=== PATIENT | male | born 1945 | race Caucasian/White ===

== ENCOUNTER → 2016-09-24 | Outpatient (CLI) | payer OTHER ==
[~2016-09-24] MED LIST: /WARF25TA PO; ALEV220C2 PO; FISH100049 PO; OMEP20TA7 OR; PERC10TA PO; PERC7.5T12 PO; TYLE325T5 PO; [UNRECOGNIZED DRUG - OTHER] OR; aleve OR; flaxseed OR; krill oil OR; vitamin D OR
--- NOTE | 2016-09-24 11:45 | REP ---
PA and lateral chest: Comparisons are the PA and lateral chest dated 02/03/[address] dated 02/11/2024. There is chronic K linear scarring inferiorly in the left lung. There is discoid atelectasis in the right costophrenic angle. The lung jiang otherwise clear. Cardiac size is normal. The keysha, mediastinum, and bony thorax are unremarkable. Impression: Discoid atelectasis in the right costophrenic angle. Linear parenchymal scar inferiorly in the left lung. Otherwise, negative PA and chest. Signed by Ash Barba MD 09/24/2016 11:38 A
[2016-09-24 12:09] LABS: MEAN CORPUSCULAR HEMOGLOBIN 30.7 pg (27.0-33.0); MEAN CORPUSCULAR HGB CONC 32.7 g/dl (32.0-36.5); MEAN CORPUSCULAR VOLUME 93.8 fl (80.0-96.0); WHITE BLOOD COUNT 6.7 K/mm3 (4.0-10.0)
[2016-09-24 12:19] LABS: ALBUMIN 3.7 GM/DL (3.2-5.2); ALBUMIN/GLOBULIN RATIO 1.19 (1.00-1.93); ALKALINE PHOSPHATASE 121 U/L (45-117); ALT/SGPT 30 U/L (12-78); ANION GAP 5 MEQ/L (8-16); AST/SGOT 17 U/L (15-37); BILIRUBIN,TOTAL 0.2 MG/DL (0.2-1.0); BLOOD UREA NITROGEN 11 MG/DL (7-18); CALCIUM LEVEL 8.7 MG/DL (8.8-10.2); CARBON DIOXIDE LEVEL 30 MEQ/L (21-32); CHLORIDE LEVEL 105 MEQ/L (98-107); CREATININE FOR GFR 0.87 MG/DL (0.70-1.30); GLOMERULAR FILTRATION RATE > 60.0 (>49); GLUCOSE, FASTING 92 MG/DL (80-110); POTASSIUM SERUM 4.5 MEQ/L (3.5-5.1); SODIUM LEVEL 140 MEQ/L (136-145); TOTAL PROTEIN 6.8 GM/DL (6.4-8.2)
[2016-09-24 12:23] LABS: INR 0.93
--- NOTE | 2016-09-24 17:18 | ECGEPIP ---
Stationary ECG Study [facility] Test Date: 2016-09-24 Pat Name: JOSE BERMUDEZ Department: Room: - Gender: M Rn Transition: : 1945 Requested By: Walter Calvo Order Number: [id number] Reading MD: Jose Miller Measurements Intervals [place] Rate: 72 P: 70 IN: 137 QRS: 8 QRSD: 96 T: 56 QT: 395 QTc: 433 Interpretive Statements SINUS RHYTHM INDETERMINANT AXIS Rate increased as compared to tracing done 02-03-12 Electronically Signed On 09-24-2016 17:18:21 EDT by Jose Miller
== END ==
LOC: M ADMPAT 10:19
PROVIDERS: ATTEND Orthopaedic Surgery
DX: Z01.818 Encounter for other preprocedural examination (principal); M17.12 Unilateral primary osteoarthritis, left knee; J98.11 Atelectasis; R94.31 Abnormal electrocardiogram [ECG] [EKG]; Z79.899 Other long term (current) drug therapy

== ENCOUNTER 2016-10-07 07:30 | Inpatient (IN) | payer OTHER ==
[2016-09-24 11:12] VITALS: BP 148/90
--- NOTE | 2016-10-05 15:08 | HPE ---
DATE OF SCHEDULED ADMISSION: 10/07/2016 CHIEF COMPLAINT: Left knee pain. HISTORY OF PRESENT ILLNESS: This is a pleasant 71-year-old male with progressively worsening left knee pain and stiffness. He has failed to improve with conservative treatment. He has elected for surgery for his continued symptoms. He has pain with weightbearing activities and his activities of daily living. X-rays of the left knee are notable for advanced osteoarthritis of the left knee joint. He has consented for a left total knee arthroplasty by Dr. Walter Calvo. Medical optimization was performed by Jonn Campbell NP. ALLERGIES: None. CURRENT MEDICATIONS: None. PAST MEDICAL HISTORY: None. PAST SURGICAL HISTORY: Shoulder rotator cuff repair and right total knee arthroplasty. SOCIAL HISTORY: This gentleman is retired. He still smokes and rarely drinks alcohol. FAMILY HISTORY: Noncontributory. REVIEW OF SYSTEMS: This patient denies chest pain, heart palpitations, cough, wheezing, difficulty breathing, and shortness breath. He denies abdominal pain, nausea, vomiting, diarrhea, or constipation. He denies recent upper respiratory infection or urinary tract infection symptoms. He does complain of persistent pain in his left knee and pain with weightbearing activities in his left knee. PHYSICAL EXAM: GENERAL: He is a well-nourished, well-developed, mm-xh-aikel-distress, adult male patient. He walks with a moderate limp, favoring his left lower extremity. He is not using assistive devices. VITAL SIGNS: He is 5 feet 7 inches, weighs 227 pounds with a temperature of 96, blood pressure of 128/84, pulse of 88, and respirations of 16. NECK: Was supple without adenopathy or jugular venous distension. There were no carotid bruits appreciated upon auscultation. LUNGS: Were clear to auscultation without rales or wheeze. HEART: Regular rate and rhythm. ABDOMEN: Bowel sounds were present. EXTREMITIES: Examination of the knee revealed intact skin. He had decreased range of motion secondary to pain and stiffness. The limb is neurovascularly intact. LABORATORY DATA: Chest x-ray showed discoid atelectasis in the right costophrenic angle, linear parenchymal scar inferior in the left lung; otherwise, negative. No acute cardiopulmonary disease processes. EKG showed sinus rhythm at 72 beats per minute. UA was within normal limits with a specific gravity of 1.015. Glucose 92, BUN 11, creatinine 0.87, sodium 140, potassium 4.5. Prothrombin time 12.6, INR 0.93. CBC was within normal limits. Sedimentation rate was 8. Urine culture showed no growth. Nasal and sinus culture showed normal conrad. IMPRESSION: Symptomatic osteoarthritis of the left knee joint. PLAN: Consented for a left total knee arthroplasty by Dr. Walter Calvo. Edited: amparo 10/05/2016 [id number]
[2016-10-07] VITALS (7 sets, daily range): BP systolic 112–165; BP diastolic 66–91
[~2016-10-07] VITALS: Ht 168.9 cm; Wt 100.2 kg
[2016-10-07] MEDS: LR 1,000 ML IV SCH ×4 (08:00→21:20)
[2016-10-07] MEDS ORDERED: MIDAZOLAM INJ 2 MG/2 ML VIAL (J2250) As Ordered ONE ×2 (09:02→10:00)
[2016-10-07] MEDS ORDERED: fentaNYL 100 MCG/2 ML INJECTION (J3010) As Ordered ONE ×3 (09:02→10:00)
[2016-10-07] MEDS ORDERED: ceFAZolin 1GM INJ (J0690) As Ordered ONE (09:26)
[2016-10-07] MEDS ORDERED: BUPIVACAINE HCL 0.25% 30 ML VIAL As Ordered ONE (09:26)
[2016-10-07] MEDS ORDERED: EPINEPHrine INJ 1 MG/ML 1ML VIAL/AMP As Ordered ONE (09:26)
[2016-10-07] MEDS ORDERED: TRANEXAMIC ACID 100 MG/ML 10ML VIAL As Ordered ONE (09:26)
[2016-10-07] MEDS ORDERED: fentaNYL 100 MCG/2 ML INJECTION (J3010) IV ONE (09:45)
[2016-10-07] MEDS ORDERED: MIDAZOLAM INJ 2 MG/2 ML VIAL (J2250) IV ONE (09:45)
[2016-10-07] MEDS ORDERED: LIDOCAINE 2% INJ 100 MG/5 ML SDV (FOR ANES.) As Ordered ONE ×2 (10:04→10:09)
[2016-10-07] MEDS ORDERED: PROPOFOL 200 MG/20 ML VIAL As Ordered ONE (10:09)
[2016-10-07] MEDS ORDERED: ePHEDrine SULFATE 25 MG/5 ML(5MG/ML) SYRINGE As Ordered ONE (10:09)
[2016-10-07] MEDS ORDERED: ONDANSETRON 4MG/2ML VIAL (J2405) As Ordered ONE (10:17)
[2016-10-07] MEDS ORDERED: PHENYLephrine HCL 500 MCG/5 ML (100MCG/ML) SYRINGE (J2370) As Ordered ONE (10:42)
[2016-10-07] MEDS ORDERED: EPIDURAL/PCA KEYS XX PRN (11:45)
[2016-10-07] MEDS ORDERED: PATIENT IS CURRENTLY ON AN ON-Q PAIN BUSTER PAIN RELIEF SYSTEM XX SCH (11:45)
[2016-10-07] MEDS ORDERED: diphenhydrAMINE INJ 50MG/ML VIAL (J1200) IV PRN (11:45)
[2016-10-07] MEDS ORDERED: METOCLOPRAMIDE INJ 10MG/2ML VIAL (J2765) IV PRN (11:45)
[2016-10-07] MEDS ORDERED: NALOXONE INJ 0.4 MG/1 ML VIAL (J2310) IV PRN (11:45)
[2016-10-07] MEDS ORDERED: PERCOCET 5MG/325MG TAB PO PRN (11:45)
[2016-10-07] MEDS ORDERED: MORPHINE PCA 1MG/ML 100ML CADD IV PRN (11:45)
[2016-10-07] MEDS ORDERED: LR 1,000 ML IV SCH (11:45)
[2016-10-07] MEDS ORDERED: MEPERIDINE INJ 25 MG/ML VIAL (J2175) IV PRN (11:45)
[2016-10-07] MEDS ORDERED: fentaNYL 100 MCG/2 ML INJECTION (J3010) IV PRN (11:45)
[2016-10-07] MEDS ORDERED: ONDANSETRON 4MG/2ML VIAL (J2405) IV PRN ×3 (11:45→12:00)
[2016-10-07] MEDS ORDERED: NALBUPHINE HCL 10 MG/ML AMP (J2300) IV PRN (11:45)
[2016-10-07] MEDS ORDERED: FLEET ENEMA PR PRN (12:00)
[2016-10-07] MEDS ORDERED: ACETAMINOPHEN TAB 650MG DOSE (2X325MG) PO PRN (12:00)
[2016-10-07] MEDS ORDERED: WARFARIN SOD 5 MG TAB PO SCH (17:00)
--- NOTE | 2016-10-07 18:11 | RO ---
DATE OF PROCEDURE: 10/07/2016 PREOPERATIVE DIAGNOSIS: Left knee osteoarthritis. POSTOPERATIVE DIAGNOSIS: Left knee osteoarthritis. PROCEDURE: Left total knee arthroplasty using a size 4 femur, size 4 tibia, 12.5 polyethylene and 38 patellar button, cruciate retaining SURGEON: Dr. Walter Calvo HEALTH CARE MARKETING MANAGER: Ernst Noble ANESTHESIA: Spinal. ESTIMATED BLOOD LOSS: Less than 50 mL. COMPLICATIONS: None. INDICATIONS: This is a 71-year-old gentleman who has been through a previous right knee replacement, did well with that. He wished to go ahead with a left knee replacement. He had advanced arthritis, and he understood the nature of the procedure, risks of bleeding, infection, damage to nerves, vessels, persistent pain, wear, loosening, blood clots, medical problems, among others. He understood the alternatives of surgery such as bracing, injections, therapy, medications. DESCRIPTION OF PROCEDURE: The patient was taken to the operating room, placed in the supine position after spinal anesthesia was induced. Left lower extremity was prepped and draped in the usual sterile fashion. Time-out was performed. Tourniquet was inflated. I created a longitudinal incision over the anterior aspect of the knee and sharp dissection was carried down through the subcutaneous tissue until the deep layer was encountered. The medial parapatellar arthrotomy was performed per routine. I removed some of the fat pad, everted the patella, flexed the knee up. I did a medial release as well. The knee was flexed up. I removed some osteophytes. There was severe arthritis on the medial compartment and moderate on the lateral compartment, severe on the patellofemoral. I used the canal initiating reamer on the femoral side, followed by the intramedullary guide set at 5 valgus and 10 mm cut. This was pinned in place by the customer marketing assistant, and the cutting block was used to make the distal . I sized the femur to be a 4, pin holes were placed in the end of the femur. The 4-in-1 cutting block was secured and the remaining cuts were made protecting soft tissues, removing osteophytes. I then prepared the tibia. The tibial alignment guide was inserted and the appropriate amount of valgus and posterior slope. This was pinned in place at 4 mm off the low side, which was also 10 mm off the high side. Proximal tibia cut was made and the bone was removed. The posterior cruciate ligament (PCL) was protected. At this point, the environmental protection specialist was used and soft tissue was removed from either side of the knee. I removed any loose fragments posteriorly etc. The spacer block was used, a size 12.5 seamed to be the most appropriate. It seemed to have good soft tissue balance in flexion and extension. I then prepared the tibia using a size 4 tray, which fit appropriately. I pinned this in place and used the reamer followed by the tova. The trial components were then placed, and I was able to secure the femur and tibial component nicely. The 12.5 polyethylene was inserted, put the knee through range of motion, and I felt like he was a little tight in extension. The 10 polyethylene was good in extension, but was a little loose in flexion, so I elected to take 2 more millimeters off the end of the femur and I resecured the cutting block on the end of the femur through the previous holes and removed 2 more millimeters from the distal femur. The 4-in-1 cutting block was secured to the femur through the previous holes. I made the remaining cuts there as well. Trial components were placed, and I was very pleased with the position and alignment of the components and there was very good tissue balance. I freehand cut the patella removing about 7 or 8 mm of bone. I sized to be a 38. The drill holes were placed. I made the drill holes in the end of the femur. The customer marketing assistant prepared the bone cement in the modern technique on the back table. I irrigated copiously after removing the trial components and cemented on the tibial tray after drying, impacted this in place, removed excess bone cement. The polyethylene was inserted 12.5 x 4, put on the femoral component, cemented this in place, removed excess bone cement, cemented on the patellar component and removed excess bone cement. Held this in place with a clamp. The knee was brought out in extension and irrigated copiously. I had irrigated copiously prior to insertion of the components and dried the bony surfaces carefully. I then used the TXA solution. Once the cement had hardened, I removed the patellar clamp and closed the deep layer was some interrupted #1 Vicryl sutures and then the running Stratafix suture was used to close the deep layer starting at the midpoint and going in each direction with the customer marketing assistant helping. Watertight closure was made. I put the knee through range of motion. There was no clicking. There was excellent stability, excellent patellar tracking. I then irrigated, closed the subcu with #2-0 Vicryl, skin with adia. The PainBuster catheter was inserted through the superolateral aspect of the knee into the joint and primed with 10 mL of Marcaine. Sterile dressing was applied. We secured the PainBuster to the side of the knee. The sterile dressing was applied. Tourniquet had been deflated. He was taken to recovery room in stable condition. There were no known complications. The plan will be routine postop for a knee replacement. ADDENDUM: The customer marketing assistant was instrumental in holding retractors and making the distal femoral cut and assisting in wound closure.
[2016-10-08 02:00] VITALS: BP 112/61
[2016-10-08 06:00] VITALS: BP 135/75
[2016-10-08] MEDS ORDERED: PERCOCET 5MG/325MG TAB PO PRN (06:30)
[2016-10-08] MEDS ORDERED: ONDANSETRON 4 MG TAB (S0181) PO PRN (06:30)
[2016-10-08 06:42] LABS: INR 1.08
[2016-10-08 06:51] LABS: MEAN CORPUSCULAR HGB CONC 32.7 g/dl (32.0-36.5); RED CELL DISTRIBUTION WIDTH 13.1 % (11.5-14.5); WHITE BLOOD COUNT 13.2 K/mm3 (4.0-10.0)
[2016-10-08] MEDS ORDERED: WARFARIN SOD 5 MG TAB PO SCH (07:00)
[2016-10-08] MEDS: LR 1,000 ML IV SCH ×3 (07:14→13:50)
[2016-10-08] MEDS: MIRALAX *UNIT DOSE* 17GM PACKET PO SCH (09:45)
[2016-10-08] MEDS: MOM 30ML SUSPENSION UDC PO SCH (09:45)
[2016-10-08] MEDS: SENOKOT S TAB PO SCH ×2 (09:46→20:05)
[2016-10-08] MEDS: PERCOCET 5MG/325MG TAB PO PRN ×2 (09:46→15:10)
[2016-10-08] MEDS ORDERED: WARFARIN SOD 7.5 MG TAB PO ONE (17:00)
[2016-10-08] MEDS ORDERED: WARFARIN SOD 5 MG TAB PO ONE (17:00)
--- NOTE | 2016-10-08 18:45 | REP ---
AP LATERAL LEFT KNEE, TWO VIEWS: HISTORY: Knee replacement. The patient is status-post left total knee replacement. There is no acute fracture or dislocation. Subcutaneous air and surgical adia are present in the overlying soft-tissue. IMPRESSION: The patient is status-post left total knee replacement. There is anatomic alignment. Unreviewed
[2016-10-08 22:00] VITALS: BP 125/62
[2016-10-09] MEDS: PERCOCET 5MG/325MG TAB PO PRN ×2 (00:06→06:09)
[2016-10-09 06:00] VITALS: BP 159/80
[2016-10-09 06:10] LABS: MEAN CORPUSCULAR HEMOGLOBIN 32.3 pg (27.0-33.0); RED CELL DISTRIBUTION WIDTH 13.2 % (11.5-14.5); WHITE BLOOD COUNT 9.6 K/mm3 (4.0-10.0)
[2016-10-09 06:27] LABS: INR 1.27
[2016-10-09] MEDS ORDERED: PERC5TAB6 PO (08:20)
[2016-10-09] MEDS ORDERED: COUM2.5T11 PO (08:20)
[2016-10-09] MEDS: SENOKOT S TAB PO SCH (10:19)
[2016-10-09] MEDS: MOM 30ML SUSPENSION UDC PO SCH (10:20)
[2016-10-09] MEDS: MIRALAX *UNIT DOSE* 17GM PACKET PO SCH (10:20)
[2016-10-09 10:59] VITALS: BP 160/84
[2016-10-09 11:03] VITALS: BP 160/84
--- NOTE | 2016-10-13 07:19 | DSES ---
DATE OF ADMISSION: 10/07/2016 DATE OF DISCHARGE: 10/09/2016 ATTENDING PHYSICIAN: Dr. Calvo ADMISSION DIAGNOSIS: Osteoarthritis left knee. OTHER DIAGNOSIS: None. DISCHARGE DIAGNOSIS: Osteoarthritis left knee status post left total knee arthroplasty. OPERATION PERFORMED: Left total knee arthroplasty. HISTORY: This is a pleasant 71-year-old male patient with progressively worsening left knee pain and stiffness. He has failed to improve with conservative management him and he was admitted for elective knee replacement on the left side. HOSPITAL COURSE: The patient was admitted on day of surgery and underwent a left total knee arthroplasty that was uneventful. He did well in the postoperative. His hospital course was without complications. He was up with physical therapy per their protocol. His pain was controlled. On day of discharge he was doing well, weightbearing as tolerated on his left lower extremity and move his left knee to prevent stiffness. He will use adjusted dose Coumadin and thromboembolic deterrent stockings (TEDS) for 30 days postoperatively for DVT prophylaxis. He will resume his preoperative medications and diet. He was given instructions to include but not limited to wound monitoring, activity limitations. He will follow up in our office in 10-14 days for surgical followup. He will use oral pain medications for pain control. Please refer to the medical record for further detail.
== END 2016-10-09 12:08 | disposition home health service (06) | DRG 470 ==
LOC: M OR 07:30 → M MS5PR 12:38
PROVIDERS: ADMIT Orthopaedic Surgery; ATTEND Orthopaedic Surgery
PROC: 0SRD0J9 Replacement of Left Knee Joint with Synthetic Substitute, Cemented, Open Approach (ICD-10-PCS; principal; 2016-10-07 09:45)
DX: M17.12 Unilateral primary osteoarthritis, left knee (principal); F17.210 Nicotine dependence, cigarettes, uncomplicated; Z79.899 Other long term (current) drug therapy; Z83.3 Family history of diabetes mellitus; Z96.651 Presence of right artificial knee joint

== ENCOUNTER → 2016-10-11 | Outpatient (REF) | payer OTHER ==
[~2016-10-11] MED LIST changes: +COUM2.5T11 PO; +PERC5TAB6 PO
[2016-10-11 14:44] LABS: INR 1.73
== END ==
LOC: M SHH 14:11
PROVIDERS: ATTEND Nurse Practitioner Family
DX: Z51.81 Encounter for therapeutic drug level monitoring (principal); Z79.01 Long term (current) use of anticoagulants

== ENCOUNTER → 2016-10-14 | Outpatient (REF) | payer OTHER ==
[2016-10-14 15:56] LABS: INR 2.62
== END ==
LOC: M SHH 13:34
PROVIDERS: ATTEND Nurse Practitioner Family
DX: Z51.81 Encounter for therapeutic drug level monitoring (principal); Z79.01 Long term (current) use of anticoagulants

== ENCOUNTER → 2016-10-18 | Outpatient (REF) | payer OTHER | LOC: M SHH 12:26 | PROVIDERS: ATTEND Nurse Practitioner Family | DX: Z51.81 Encounter for therapeutic drug level monitoring (principal); Z79.01 Long term (current) use of anticoagulants ==

== ENCOUNTER → 2016-10-21 | Outpatient (REF) | payer OTHER ==
[2016-10-21 12:07] LABS: INR 1.76
== END ==
LOC: M SHH 11:16
PROVIDERS: ATTEND Nurse Practitioner Family
DX: Z51.81 Encounter for therapeutic drug level monitoring (principal); Z79.01 Long term (current) use of anticoagulants

== ENCOUNTER → 2016-10-25 | Outpatient (REF) | payer OTHER ==
[2016-10-25 10:51] LABS: INR 1.15
== END ==
LOC: M SHH 10:29
PROVIDERS: ATTEND Nurse Practitioner Family
DX: Z51.81 Encounter for therapeutic drug level monitoring (principal); Z79.01 Long term (current) use of anticoagulants

== ENCOUNTER → 2016-10-28 | Outpatient (REF) | payer OTHER ==
[2016-10-28 15:57] LABS: INR 1.37
== END ==
LOC: M SHH 15:14
PROVIDERS: ATTEND Nurse Practitioner Family
DX: Z51.81 Encounter for therapeutic drug level monitoring (principal); Z79.01 Long term (current) use of anticoagulants

== ENCOUNTER → 2016-11-02 | Outpatient (REF) | payer OTHER ==
[2016-11-02 13:59] LABS: INR 2.19
== END ==
LOC: M SHH 12:29
PROVIDERS: ATTEND Nurse Practitioner Family
DX: Z51.81 Encounter for therapeutic drug level monitoring (principal); Z79.01 Long term (current) use of anticoagulants

== ENCOUNTER → 2016-11-04 | Outpatient (REF) | payer OTHER ==
[2016-11-04 14:30] LABS: INR 1.97
== END ==
LOC: M SHH 13:03
PROVIDERS: ATTEND Nurse Practitioner Family
DX: Z51.81 Encounter for therapeutic drug level monitoring (principal); Z79.01 Long term (current) use of anticoagulants

== ENCOUNTER → 2018-11-10 | Outpatient (CLI) | payer OTHER ==
[~2018-11-10] MED LIST changes: -/WARF25TA PO; +COUM1TAB18 PO; -COUM2.5T11 PO; +COUM2.5T17 PO; +PERC5TAB12 PO; -PERC5TAB6 PO
[2018-11-10 12:39] LABS: BASO # 0.1 10^3/uL (0.0-0.2); BASO % 1.5 % (0.0-1.0); EOS # 0.3 10^3/uL (0.0-0.50); EOS % 4.7 % (0.0-3.0); HEMATOCRIT 37.3 % (42.0-52.0); HEMOGLOBIN 11.3 g/dl (13.5-17.5); LYMPH # 1.5 10^3/uL (1.5-4.5); LYMPH % 24.5 % (24.0-44.0); MEAN CORPUSCULAR HEMOGLOBIN 25.3 pg (27.0-33.0); MEAN CORPUSCULAR HGB CONC 30.3 g/dl (32.0-36.5); MEAN CORPUSCULAR VOLUME 83.6 fl (80.0-96.0); MONO # 0.7 10^3/uL (0.0-0.8); MONO % 11.1 % (0.0-5.0); NEUTROPHILS # 3.4 10^3/uL (1.8-7.7); NEUTROPHILS % 57.9 % (36.0-66.0); PLATELET COUNT, AUTOMATED 306 10^3/uL (150-450); RED BLOOD COUNT 4.46 10^6/uL (4.30-6.10); WHITE BLOOD COUNT 5.9 10^3/uL (4.0-10.0)
[2018-11-10 12:42] LABS: ALBUMIN 3.4 GM/DL (3.2-5.2); ALT/SGPT 23 U/L (12-78); BILIRUBIN,TOTAL 0.2 MG/DL (0.2-1.0); BLOOD UREA NITROGEN 18 MG/DL (7-18); CALCIUM LEVEL 8.2 MG/DL (8.8-10.2); CARBON DIOXIDE LEVEL 28 MEQ/L (21-32); CHLORIDE LEVEL 109 MEQ/L (98-107); CHOLESTEROL LEVEL 145 MG/DL (<200); CHOLESTEROL RISK RATIO 3.625 (<5); CREATININE FOR GFR 0.84 MG/DL (0.70-1.30); GLOMERULAR FILTRATION RATE > 60.0 (>42); GLUCOSE, FASTING 109 MG/DL (70-100); HDL CHOLESTEROL 40 MG/DL (>40); LDL CHOLESTEROL 93 MG/DL (<100); NON-HDL-C 105 MG/DL; POTASSIUM SERUM 4.4 MEQ/L (3.5-5.1); SODIUM LEVEL 143 MEQ/L (136-145); TOTAL PROTEIN 6.7 GM/DL (6.4-8.2); TRIGLYCERIDES LEVEL 61 MG/DL (<150)
[2018-11-11 14:40] LABS: PSA TOTAL 1.5 ng/mL (0.0-4.0)
== END ==
LOC: M WUC 08:27
PROVIDERS: ATTEND Nurse Practitioner Family
DX: K21.9 Gastro-esophageal reflux disease without esophagitis (principal); Z12.5 Encounter for screening for malignant neoplasm of prostate; Z13.220 Encounter for screening for lipoid disorders

== ENCOUNTER → 2020-11-13 | Outpatient (CLI) | payer MEDICARE ==
--- NOTE | 2020-11-13 14:43 | REP ---
INDICATION: SOB, HX OF EMPHYSEMA. COMPARISON: 03/26/2019 the latest prior TECHNIQUE: PA and lateral FINDINGS: The superior mediastinal structures are midline. The cardiac silhouette is unremarkable in size, shape, and position. The diaphragmatic surfaces of the lungs are regular, and the costophrenic angles are clear. The pulmonary jiang are unchanged. Mild bibasilar curvilinear densities are again noted. There are no new abnormal opacities. Imaged osseous structures are stable IMPRESSION: There is no acute cardiopulmonary disease. Stable appearing chronic changes. <Electronically signed by Silvestre Cochran > 11/13/20 1220
[2020-11-13 18:07] LABS: PERCENT SATURATION 3.5 % (19.7-50.0)
[2020-11-13 18:49] LABS: HEMATOCRIT 34.5 % (42.0-52.0)
== END ==
LOC: M WUC 13:59
PROVIDERS: ATTEND Nurse Practitioner Adult Health
DX: R06.02 Shortness of breath (principal); D64.9 Anemia, unspecified

== ENCOUNTER → 2020-11-21 | Outpatient (CLI) | payer MEDICARE ==
--- NOTE | 2020-11-21 14:57 | REP ---
INDICATION: Assess stenosis TECHNIQUE: Carotid ultrasonography was performed bilaterally FINDINGS: Right: CCA systolic: 93.5 centimeters/second CCA diastolic: 17.7 centimeters/second ICA systolic: 80.0 centimeters/second ICA diastolic: 22.6 centimeters/second ICA CCA ratio: 0.86 Left: CCA systolic: 71.3 centimeters/second CCA diastolic: 12.3 centimeters/second ICA systolic: 73.3 centimeters/second ICA diastolic: 23.6 centimeters/second ICA CCA ratio: 1.03 Vertebral artery: Right: Not visualized left: Antegrade flow Only a small amount of echogenic material seen along the carotid arterial blake, however, some of this echogenic material casts and acoustic shadow consistent with calcific deposition. The technologist has indicated on the worksheet that the examination is of limited quality secondary to the patient's neck size. IMPRESSION: According to the SRU criteria there is less than 50% stenosis of the internal carotid artery bilaterally. This is secondary to both calcified and noncalcified atheromatous plaque formation. <Electronically signed by Silvestre Cochran > 11/21/20 [id number]
== END ==
LOC: M RAD 13:58
PROVIDERS: ATTEND Nurse Practitioner Adult Health
DX: I65.23 Occlusion and stenosis of bilateral carotid arteries (principal)

== ENCOUNTER 2020-12-16 18:31 | Inpatient (IN) | payer MEDICARE ==
[~2020-12-16] VITALS: Ht 167.6 cm; Wt 108.1 kg
[~2020-12-16 18:31] MED LIST changes: -ACET650T15 PO; -ALEV220T22 PO; -ASCO50TA PO; -BACITAB PO; -DOXY100C; -DOXY100T2 PO; -ELIQ5TAB PO; -FERR325T3 PO; -FISH1000 PO; -FLOM0.4C39 PO; -OMEP-218 PO; -PRED10TA2 PO; -PRED5TA PO; -VENTAER INH; -XARE15TA PO
[2020-12-16] MEDS ORDERED: PRED5TA PO (18:59)
[2020-12-16] MEDS ORDERED: DOXY100C (18:59)
[2020-12-16 22:38] LABS: BASO # 0.1 10^3/uL (0.0-0.2); BASO % 0.8 % (0.0-1.0); EOS % 0.2 % (0.0-3.0); HEMATOCRIT 36.6 % (42.0-52.0); HEMOGLOBIN 9.7 g/dl (13.5-17.5); LYMPH # 0.7 10^3/uL (1.5-5.0); LYMPH % 7.5 % (24.0-44.0); MEAN CORPUSCULAR HEMOGLOBIN 18.5 pg (27.0-33.0); MEAN CORPUSCULAR HGB CONC 26.5 g/dl (32.0-36.5); MONO # 0.2 10^3/uL (0.0-0.8); MONO % 2.5 % (2.0-8.0); NEUTROPHILS # 7.7 10^3/uL (1.5-8.5); NEUTROPHILS % 88.7 % (36.0-66.0); PLATELET COUNT, AUTOMATED 345 10^3/uL (150-450); RED BLOOD COUNT 5.23 10^6/uL (4.30-6.10); WHITE BLOOD COUNT 8.7 10^3/uL (4.0-10.0)
[2020-12-16 23:06] LABS: BLOOD UREA NITROGEN 17 MG/DL (7-18); CALCIUM LEVEL 8.8 MG/DL (8.8-10.2); CARBON DIOXIDE LEVEL 27 MEQ/L (21-32); CHLORIDE LEVEL 106 MEQ/L (98-107); CK-MB VALUE MASS < 1.0 NG/ML (<3.6); CPK CREATINE PHOSPHOKINASE 35 U/L (39-308); CREATININE FOR GFR 0.96 MG/DL (0.70-1.30); GLOMERULAR FILTRATION RATE > 60.0 (>42); GLUCOSE, FASTING 157 MG/DL (70-100); MB/CK RELATIVE INDEX 2.86 (< OR =4); SODIUM LEVEL 138 MEQ/L (136-145); TROPONIN I < 0.02 NG/ML (< 0.10)
[2020-12-17 01:27] LABS: ALBUMIN 3.6 GM/DL (3.2-5.2); ALT/SGPT 25 U/L (12-78); BILIRUBIN,DIRECT 0.1 MG/DL (0.0-0.2); BILIRUBIN,TOTAL 0.4 MG/DL (0.2-1.0); NT-PRO BNP 310 PG/ML (<125); THYROID STIMULATING HORMONE 0.824 uIU/ML (0.358-3.740); THYROXINE (T4) 7.8 UG/DL (4.5-12.0); TOTAL PROTEIN 7.5 GM/DL (6.4-8.2)
[2020-12-17] MEDS: ALBUTEROL 90 MCG/ACT 8GM HFA INHALER INH SCH ×3 (01:35→01:55)
[2020-12-17] MEDS ORDERED: ISOVUE-370 76% 100ML VIAL As Ordered ONE (01:41)
[2020-12-17 01:47] LABS: D-DIMER QUANT 3771.96 ng/ml (<500)
[2020-12-17] MEDS ORDERED: HEPARIN DRIP 25,000 UNITS in IV 1 EA IV SCH (02:45)
[2020-12-17] MEDS ORDERED: HEPARIN SOD (PORCINE) 5000UNITS/ML 1ML VIAL/SYRINGE IV ONE ×2 (02:45→03:15)
[2020-12-17] MEDS ORDERED: MOM 30ML SUSPENSION UDC PO PRN (03:55)
[2020-12-17] MEDS ORDERED: ACETAMINOPHEN TAB 650MG DOSE (2X325MG) PO PRN (03:55)
[2020-12-17] MEDS ORDERED: HEPARIN SOD (PORCINE) 5000UNITS/ML 1ML VIAL/SYRINGE IV PRN (03:55)
[2020-12-17] MEDS ORDERED: MAALOX 30 ML SUSP *UDC PO PRN (03:55)
[2020-12-17] MEDS ORDERED: methylPREDNISolone 125MG 2ML VIAL IV ONE (03:55)
--- NOTE | 2020-12-17 04:03 | REPVR ---
PROCEDURE INFORMATION: Exam: CTA Chest With Contrast Exam date and time: 12/17/2020 1:37 AM Age: 75 years old Clinical indication: Shortness of breath; Additional info: SOB, montemayor, R/O pe TECHNIQUE: Imaging protocol: Computed tomographic angiography of the chest with contrast. 3D rendering (Not supervised by radiologist): MIP and/or 3D reconstructed images were created by the technologist. Radiation optimization: All CT scans at this facility use at least one of these dose optimization techniques: automated exposure control; mA and/or kV adjustment per patient size (includes targeted exams where dose is matched to clinical indication); or iterative reconstruction. Contrast material: ISO; Contrast volume: 100 ml; Contrast route: INTRAVENOUS (IV); COMPARISON: 1. CR PORTABLE CHEST X-RAY 2020-12-17 00:44 2. CR CHEST 2 VIEW 2020-12-16 14:07 FINDINGS: Pulmonary arteries: Multiple segmental and lobar branch pulmonary emboli. Aorta: Unremarkable. No aortic aneurysm. No aortic dissection. Lungs: Unremarkable. No consolidation. No masses. Pleural spaces: Unremarkable. No pneumothorax. No pleural effusion. Heart: No evidence for heart strain. Moderate coronary artery calcification. Mediastinal space: Small gastroesophageal sliding type hiatal hernia. Lymph nodes: Unremarkable. No enlarged lymph nodes. Bones/joints: Unremarkable. No acute fracture. Soft tissues: Unremarkable. IMPRESSION: Multiple segmental and lobar branch pulmonary emboli. No evidence for heart strain. Electronically signed by: Jose Hsu On 12/17/2020 04:03:16 AM
--- NOTE | 2020-12-17 04:06 | REPVR ---
PROCEDURE INFORMATION: Exam: XR Chest Exam date and time: 12/17/2020 12:50 AM Age: 75 years old Clinical indication: Pain; Angina pectoris; Additional info: Chest pain TECHNIQUE: Imaging protocol: XR of the chest. Views: 1 view. COMPARISON: 1. CR CHEST 2 VIEW 2020-12-16 14:07 2. CR Chest, 2 view PA, Lat 2016-09-24 11:24 3. WI CHEST 2 VIEW 2020-11-13 14:[address] ABD PELVIS W/O CONTRAST 2016-01-25 22:33 FINDINGS: Lungs: Unremarkable. No consolidation. Pleural spaces: Unremarkable. No pleural effusion. No pneumothorax. Heart/Mediastinum: Unremarkable. No cardiomegaly. Bones/joints: Unremarkable. IMPRESSION: No acute findings. Electronically signed by: Jose Hsu On 12/17/2020 04:06:20 AM
--- NOTE | 2020-12-17 04:06 | REPVR ---
PROCEDURE INFORMATION: Exam: CT Abdomen And Pelvis With Contrast Exam date and time: 12/17/2020 1:37 AM Age: 75 years old Clinical indication: Abdominal pain; Flank; Right; Additional info: SOB, montemayor, R flank pain TECHNIQUE: Imaging protocol: Computed tomography of the abdomen and pelvis with contrast. Radiation optimization: All CT scans at this facility use at least one of these dose optimization techniques: automated exposure control; mA and/or kV adjustment per patient size (includes targeted exams where dose is matched to clinical indication); or iterative reconstruction. Contrast material: ISO; Contrast volume: 100 ml; Contrast route: INTRAVENOUS (IV); COMPARISON: 1. CT ABD PELVIS W/O CONTRAST 2016-01-25 22:33 2. CR PORTABLE CHEST X-RAY 2020-12-17 00:44 FINDINGS: Mediastinal space: Small gastroesophageal sliding type hiatal hernia. Liver: Normal. No mass. Gallbladder and bile ducts: Cholelithiasis. Pancreas: Normal. No ductal dilation. Spleen: Normal. No splenomegaly. Adrenal glands: Normal. No mass. Kidneys and ureters: Normal. No hydronephrosis. Stomach and bowel: Unremarkable. No obstruction. No mucosal thickening. Appendix: No evidence of appendicitis. Intraperitoneal space: Unremarkable. No free air. No significant fluid collection. Retroperitoneal space: Mild stranding in the left retroperitoneum. Correlate with urinalysis to exclude ureteritis. Vasculature: Mild to moderate aortic and iliac artery atherosclerotic calcification. Mild to moderate aortic and iliac artery atherosclerotic calcification. Pulmonary emboli. Lymph nodes: Unremarkable. No enlarged lymph nodes. Urinary bladder: Unremarkable as visualized. Reproductive: Mild prostate calcification. Bones/joints: Moderate severe multilevel spinal stenosis. Soft tissues: Left inguinal fat protruding small hernia. IMPRESSION: 1. Cholelithiasis. 2. Mild stranding in the left retroperitoneum. Correlate with urinalysis to exclude ureteritis. 3. Left inguinal fat protruding small hernia. 4. Moderate severe multilevel spinal stenosis. 5. Pulmonary emboli. Electronically signed by: Jose Hsu On 12/17/2020 04:05:59 AM
--- NOTE | 2020-12-17 04:25 | HPEPDOC ---
[facility] Medical History & Physical Date of Admission Dec 17, 2020 Date of Service: Dec 17, 2020 Attending Physician: DEMETRIO GUAJARDO MD History and Physical CHIEF COMPLAINT: Shortness of breath HISTORY OF PRESENT ILLNESS: Mr. Mendoza is a 75-year-old male who was sent to the ER today from urgent care with complaint of 2-3 days of worsening shortness of breath. Prior to this time, the patient had been very active and most recently completed work on a very large screened in [employer] at the back of his house. The last day that they were working on it they had finished the roof in the rain. That night, the patient complained of chills and "shaking" all night. The next day he complained of right lower back pain and wondered if he was getting a kidney infection. However, that symptom disappeared the day after that. According to the patient's , he was at his baseline for about 2 days and then began to experience the sudden onset of shortness of breath. He has a long history of smoking, having quit about 3 years ago. He was diagnosed with COPD in 2013 and does get short of breath at times. He is not on any medications and states that that shortness of breath, never lasts long. He has not had any further treatment or workup since his diagnosis in 2013. He has also been diagnosed with obstructive sleep apnea but is noncompliant with CPAP. He was recently diagnosed with iron deficiency anemia and started on iron supplementation. He states his stools have been black since he started. He also complains of diarrhea since the onset of his shortness of breath 2-3 days ago. He denies seeing any elia or overt blood in his stools. He has not had any fever or chills since that initial night after the rain. He denies nausea or vomiting. On initial evaluation. D-dimer was 3771 and the patient was noted to have multiple segmental and lobar branch pulmonary emboli. Radiology noted no evidence for heart strain. BNP was 310. Hemoglobin and hematocrit were 9.7 and 36.6. Stool was heme positive. Blood glucose was elevated at 157 with no history of diabetes. CT of the abdomen and pelvis showed cholelithiasis and there is mild stranding in the left retroperitoneum with radiology recommending a correlation with urinalysis to exclude ureteritis. There is also a left inguinal fat protruding small hernia and moderate severe multilevel spinal stenosis. UA is pending. Portable chest x-ray was negative for any acute findings. Covid test was negative at urgent care this afternoon. Patient was noted to have hypoxia with O2 sats as low as 86% with exertion. Oxygen had to be increased to 4 L by nasal cannula in order to obtain an O2 sat of 94%. The patient was started on heparin despite the heme positive stool with plans to monitor hemoglobin and hematocrit closely. PAST MEDICAL HISTORY: 1. Chronic obstructive pulmonary disease. 2. Obstructive sleep apnea, noncompliant with CPAP. 3. Kidney stone. 4. Urinary frequency. 5. Anemia with iron deficiency PAST SURGICAL HISTORY: 1. Rotator cuff repair. 2. Right total knee replacement. 3. Left total knee replacement. 4. Hernia repair SOCIAL HISTORY: Tobacco use: Patient quit about 3 years ago ETOH: Rarely Illicit drug use: Denies Patient lives with: Lives with his FAMILY HISTORY: Patient's mother is 97 years old and suffers from COPD. His father at 96 with a history of Alzheimer's. He also had a sister who had lung cancer. REVIEW OF SYSTEMS: Complete 10 point review systems is negative except as noted above PHYSICAL EXAMINATION: Patient is seen in the ER, lying on the stretcher. He is alert and oriented x 3. HEENT is WNL. Neck is supple. Lungs are clear to auscultation, but the patient does get tachypneic with speech. Heart regular rate and rhythm without murmur. Abdomen is obese, soft, non-tender to palpation with bowel sounds positive. Extremities with good ROM and strength equal bilaterally. 1+ lower extremity edema. Patient complains of pain at the bilateral lower leg at the medial calf. No pain with dorsiflexion of foot. Pedal pulses are positive. Skin is warm and dry with no obvious rash or lesion. Neuro: grossly intact. Psych: He is very pleasant and cooperative ASSESSMENT AND PLAN: 1. Acute respiratory failure with hypoxia secondary to bilateral pulmonary emboli and acute exacerbation of chronic obstructive pulmonary disease. We'll continue the patient on heparin drip per protocol and monitor hemoglobin and hematocrit closely. Will add routine nebulizers including DuoNeb and Pulmicort. Will also add IV steroids. Continue oxygen and titrate to keep sats greater than 90%. Encourage good pulmonary toilet. Will check echocardiogram and lower extremity venous duplex. 2. Hemoccult-positive stool. Will add Protonix IV twice a day. Monitor hemoglobin and hematocrit closely on heparin protocol. 3. Anemia secondary to acute blood loss with heme-positive stool on chronic anemia with iron deficiency. Continue iron supplementation. Monitor hemoglobin and hematocrit closely. 4. Hyperglycemia with no history of diabetes. Will check HbA1c. Monitor blood glucose with daily labs. 5. Possible ureteritis. UA pending. Will hold off on initiating any antibiotics until a true source of infection could be identified. 6. DVT prophylaxis. Heparin per protocol. CODE STATUS: CODE STATUS was discussed with the patient. He desires to be considered full code. He states his , daughter or son would act as his surrogate if he were unable to make his own decisions. Patient is considered high risk of further deterioration including possible respiratory arrest. He is admitted as inpatient and expected to remain at least 2-3 midnight. Vital Signs Vital Signs Date Time Temp Pulse Resp B/P (MAP) Pulse Ox O2 Delivery O2 Flow Rate FiO2 12/16/20 23:41 97.9 81 18 146/78 (100) 95 Room Air Laboratory Data Labs 24H Laboratory Tests 2 12/16/20 22:08: Immature Granulocyte % (Auto) 0.3, Neutrophils (%) (Auto) 88.7H, Lymphocytes (%) (Auto) 7.5L, Monocytes (%) (Auto) 2.5, Eosinophils (%) (Auto) 0.2, Basophils (%) (Auto) 0.8, Neutrophils # (Auto) 7.7, Lymphocytes # (Auto) 0.7L, Monocytes # (Auto) 0.2, Eosinophils # (Auto) 0.0, Basophils # (Auto) 0.1, Nucleated Red Blood Cells % (auto) 0.0 12/16/20 22:24: Anion Gap 5L, Glomerular Filtration Rate > 60.0, Calcium Level 8.8, Total Bilirubin 0.4, Direct Bilirubin 0.1, Aspartate Amino Transf (AST/SGOT) 14, Alanine Aminotransferase (ALT/SGPT) 25, Alkaline Phosphatase 105, Total Creatine Kinase 35L, Creatine Kinase MB < 1.0, Creatine Kinase MB Relative Index 2.86, Troponin I < 0.02, MH-Cwk-Q-Type Natriuretic Peptide 310H, Total Protein 7.5, Albumin 3.6, Albumin/Globulin Ratio 0.9, Thyroid Stimulating Hormone (TSH) 0.824, Thyroxine (T4) 7.8 12/17/20 00:59: D-Dimer, Quantitative 3771.96H 12/17/20 01:51: POC pH (Misc Panel) 7.428, POC Base Excess (Misc Panel) 0.0, POC Saturated Percent O2 (Misc) 93L, POC pO2 (Misc Panel) 64.0L, POC pCO2 (Misc Panel) 36.5, POC HCO3 (Misc Panel) 24.1, POC Total CO2 (Misc Panel) 25.0 CBC/BMP Laboratory Tests 12/16/20 22:08 12/16/20 22:24 Microbiology Microbiology 12/17/20 Respiratory Virus Panel (PCR) ([facility]) - Final, Complete Home Medications Scheduled Fish Oil (Fish Oil 1000 mg) 1 Cap Cap, 2 CAP PO DAILY Prednisone (Prednisone) 5 Mg Tablet, 1 TAB PO DAILY Warfarin Sodium (Coumadin) 2.5 Mg Tab, 3 TAB PO ASDIRECTED MDD = 6 tabs Scheduled PRN Oxycodone HCl/Acetaminophen (Percocet 5-325 mg Tablet) 1 Tab Tab, 1-2 TAB PO Q4H PRN for PAIN Miscellaneous Medications Doxycycline Hyclate (Doxycycline Hyclate) 100 Mg Capsule Allergies Coded Allergies: No Known Allergies (Unverified , 12/16/20) A-FIB/CHADSVASC A-FIB History Current/History of A-Fib/PAF?: No SWETA GUILLEN Dec 17, 2020 04:25
[2020-12-17 04:27] LABS: INR 1.03; PROTHROMBIN TIME 13.7 SECONDS (12.5-14.3)
[2020-12-17] MEDS ORDERED: DOXY100T2 PO (04:31)
[2020-12-17] MEDS ORDERED: FLOM0.4C39 PO (04:31)
[2020-12-17] MEDS ORDERED: OMEP-218 PO (04:31)
[2020-12-17] MEDS ORDERED: FISH1000 PO (04:31)
[2020-12-17] MEDS ORDERED: BACITAB PO (04:31)
[2020-12-17] MEDS ORDERED: PRED5TA PO (04:31)
[2020-12-17] MEDS ORDERED: FERR325T3 PO (04:31)
[2020-12-17] MEDS ORDERED: ALEV220T22 PO (04:31)
--- NOTE | 2020-12-17 05:43 | REPVR ---
PROCEDURE INFORMATION: Exam: US Duplex Lower Extremity Veins, Bilateral Exam date and time: 12/17/2020 5:26 AM Age: 75 years old Clinical indication: Abnormal findings; Abnormal lab test; Elevated d-dimer; Additional info: Bilateral pe TECHNIQUE: Imaging protocol: Real-time duplex ultrasound of the extremities with 2-D rahman scale, color Doppler flow and spectral waveform analysis with image documentation. Complete exam focused on the bilateral lower extremity veins. COMPARISON: 1. CT ABD/PEL W/IV CONTRAST ONLY 2020-12-17 01:[address] ABD PELVIS W/O CONTRAST 2016-01-25 22:33 FINDINGS: Right deep veins: Unremarkable. The common femoral, femoral, proximal profunda femoral and popliteal veins are patent without thrombus. Normal Doppler waveforms. Normal compressibility and/or augmentation response. Right superficial veins: Saphenofemoral junction is patent without thrombus. Left deep veins: Unremarkable. The common femoral, femoral, proximal profunda femoral and popliteal veins are patent without thrombus. Normal Doppler waveforms. Normal compressibility and/or augmentation response. Left superficial veins: Saphenofemoral junction is patent without thrombus. Soft tissues: Unremarkable. IMPRESSION: No evidence of deep vein thrombosis. Electronically signed by: Jose Hsu On 12/17/2020 05:42:54 AM
[2020-12-17 07:07] LABS: APPEARANCE, URINE CLEAR (CLEAR); BACTERIA, URINE AUTO NEGATIVE (NEGATIVE); BILIRUBIN, URINE AUTO NEGATIVE (NEGATIVE); BLOOD, URINE BLOOD NEGATIVE (NEGATIVE); COLOR, URINE YELLOW (YELLOW); GLUCOSE, URINE (UA) AUTO NEGATIVE (NEGATIVE); KETONE, URINE AUTO NEGATIVE (NEGATIVE); LEUKOCYTE ESTERASE, URINE AUTO NEGATIVE (NEGATIVE); MUCUS, URINE SMALL (NEGATIVE); NITRITE, URINE AUTO NEGATIVE (NEGATIVE); PROTEIN, URINE AUTO NEGATIVE (NEGATIVE); RBC, URINE AUTO 0 /HPF (0-3); SPECIFIC GRAVITY URINE AUTO 1.046 (1.002-1.035); SQUAMOUS EPITHELIAL CELL UR AU 0 /HPF (0-6); UROBILINOGEN, URINE AUTO 0.2 mg/dL (0.0-2.0); WBC, URINE AUTO 3 /HPF (0-3)
[2020-12-17 07:28] LABS: HEMOGLOBIN 8.7 g/dl (13.5-17.5); MEAN CORPUSCULAR HEMOGLOBIN 18.3 pg (27.0-33.0); MEAN CORPUSCULAR HGB CONC 26.4 g/dl (32.0-36.5); MEAN CORPUSCULAR VOLUME 69.3 fl (80.0-96.0); PLATELET COUNT, AUTOMATED 328 10^3/uL (150-450); RED BLOOD COUNT 4.76 10^6/uL (4.30-6.10); WHITE BLOOD COUNT 9.1 10^3/uL (4.0-10.0)
[2020-12-17 07:56] LABS: INR 1.06
[2020-12-17 07:57] LABS: PARTIAL THROMBOPLASTIN TIME 62.7 SECONDS (24.2-38.5)
[2020-12-17 07:58] LABS: HEMOGLOBIN A1c 6.6 %
[2020-12-17] MEDS: IPRATROPIUM 0.5MG/ALBUTEROL 2.5MG INH SOL UD 3ML (DUONEB) NEB SCH ×3 (08:17→19:29)
[2020-12-17] MEDS: BUDESONIDE 0.5 MG/2 ML INHALATION SUSPENSION INH SCH ×2 (08:17→19:29)
[2020-12-17 08:20] LABS: BLOOD UREA NITROGEN 16 MG/DL (7-18); CALCIUM LEVEL 8.5 MG/DL (8.8-10.2); CARBON DIOXIDE LEVEL 26 MEQ/L (21-32); CHLORIDE LEVEL 106 MEQ/L (98-107); CREATININE FOR GFR 0.86 MG/DL (0.70-1.30); GLOMERULAR FILTRATION RATE > 60.0 (>42); GLUCOSE, FASTING 164 MG/DL (70-100); MAGNESIUM LEVEL 2.3 MG/DL (1.8-2.4); SODIUM LEVEL 141 MEQ/L (136-145)
[2020-12-17] MEDS: PANTOPRAZOLE 40MG VIAL (C9113 PER 1) IV SCH ×2 (08:53→20:10)
[2020-12-17 14:10] VITALS: BP 138/78
[2020-12-17] MEDS: HEPARIN DRIP 25,000 UNITS in IV 1 EA IV SCH (14:15)
[2020-12-17] MEDS: methylPREDNISolone 40MG 1ML VIAL IV SCH ×2 (14:37→20:10)
[2020-12-17 15:41] LABS: HEMOGLOBIN 9.4 g/dl (13.5-17.5); MEAN CORPUSCULAR HEMOGLOBIN 18.6 pg (27.0-33.0); MEAN CORPUSCULAR HGB CONC 26.9 g/dl (32.0-36.5); MEAN CORPUSCULAR VOLUME 69.2 fl (80.0-96.0); PLATELET COUNT, AUTOMATED 311 10^3/uL (150-450); RED BLOOD COUNT 5.06 10^6/uL (4.30-6.10); WHITE BLOOD COUNT 8.1 10^3/uL (4.0-10.0)
[2020-12-17] MEDS: ASCORBIC ACID 500 MG TAB PO SCH (15:45)
[2020-12-17] MEDS: FERROUS SULFATE 325MG TAB PO SCH (15:45)
[2020-12-17] MEDS: TAMSULOSIN 0.4 MG CAP PO SCH (15:45)
--- NOTE | 2020-12-17 18:16 | IPNPDOC ---
Subjective Date Seen The patient was seen on 12/17/20. Subjective Chief Complaint/HPI Mr. Mendoza is a 75 year old male with COPD, CLAUDETTE, and iron deficiency anemia who presents with hypoxia and found to have bilateral PE. He was seen this morning in the ED. He is okay at rest, but dyspnea with exertion. Denies any recent travel, surgery, or immobilization. He tells me he is active. He had a colonoscopy 4 to 5 years ago. Objective Physical Examination General Exam: Positive: Alert, Cooperative Eye Exam: Negative: Sclera icteric ENT Exam: Positive: Atraumatic Neck Exam: Positive: Supple Chest Exam: Positive: Clear to auscultation Heart Exam: Positive: Rate Normal, Regular Rhythm Abdomen Exam: Positive: Normal bowel sounds, Soft; Negative: Tenderness Extremity Exam: Positive: Edema (mild pitting edema) Neuro Exam: Positive: Normal Speech Psych Exam: Positive: Mental status NL, Mood NL Assessment /Plan Assessment Mr. Mendoza is a 75 year old male with COPD, CLAUDETTE, and iron deficiency anemia who presents with hypoxia and found to have bilateral PE. Due to patient's anemia, will start patient on heparin drip and monitor H&H. Otherwise, patient is not normally on oxygen at home. Currently requiring 4L NC Plan/VTE VTE Prophylaxis Ordered?: Yes VTE Exclusion Mechanical Proph: Patient on IV Heparin VTE Exclusion Pharmacological: IV Heparin Therapy Plan 1. Acute unprovoked PE -Multiple segmental and lobar branch PE -No obvious cause. Denies recent travel, hospitalization, surgery, or immobilization -Hypercoagulable work up initiated -Heparin drip due to anemia 2. Iron deficiency anemia -On 11/13/20, Iron 17 and Ferritin 5 -Monitor H&H closely while on heparin drip -Continue iron supplementation. Add on vitamin C 3. BPH -Continue tamsulosin 4. R/O urethritis -UA negative 5. DVT ppx -Patient on heparin drip Disposition: Pending clinical improvement and improvement in oxygen requirements VS, I&O, 24H, Neela Vital Signs/I&O Vital Signs Date Time Temp Pulse Resp B/P (MAP) Pulse Ox O2 Delivery O2 Flow Rate FiO2 12/17/20 14:10 97.7 75 20 138/78 (98) 94 Nasal Cannula 4.0 Laboratory Data 24H LABS Laboratory Tests 2 12/16/20 22:08: Immature Granulocyte % (Auto) 0.3, Neutrophils (%) (Auto) 88.7H, Lymphocytes (%) (Auto) 7.5L, Monocytes (%) (Auto) 2.5, Eosinophils (%) (Auto) 0.2, Basophils (%) (Auto) 0.8, Neutrophils # (Auto) 7.7, Lymphocytes # (Auto) 0.7L, Monocytes # (Auto) 0.2, Eosinophils # (Auto) 0.0, Basophils # (Auto) 0.1, Nucleated Red Blood Cells % (auto) 0.0 12/16/20 22:24: Anion Gap 5L, Glomerular Filtration Rate > 60.0, Calcium Level 8.8, Total Bilirubin 0.4, Direct Bilirubin 0.1, Aspartate Amino Transf (AST/SGOT) 14, Alanine Aminotransferase (ALT/SGPT) 25, Alkaline Phosphatase 105, Total Creatine Kinase 35L, Creatine Kinase MB < 1.0, Creatine Kinase MB Relative Index 2.86, Troponin I < 0.02, LS-Irj-C-Type Natriuretic Peptide 310H, Total Protein 7.5, Albumin 3.6, Albumin/Globulin Ratio 0.9, Thyroid Stimulating Hormone (TSH) 0.824, Thyroxine (T4) 7.8 12/17/20 00:59: Prothrombin Time 13.7, Prothromb Time International Ratio 1.03, Activated Partial Thromboplast Time 32.0, D-Dimer, Quantitative 3771.96H 12/17/20 01:51: POC pH (Misc Panel) 7.428, POC Base Excess (Misc Panel) 0.0, POC Saturated Percent O2 (Misc) 93L, POC pO2 (Misc Panel) 64.0L, POC pCO2 (Misc Panel) 36.5, POC HCO3 (Misc Panel) 24.1, POC Total CO2 (Misc Panel) 25.0 12/17/20 06:55: Urine Color YELLOW, Urine Appearance CLEAR, Urine pH 5.0, Urine Specific [place] 1.046, Urine Protein NEGATIVE, Urine Glucose (Auto)(UA) NEGATIVE, Urine Ketones (Auto) NEGATIVE, Urine Blood NEGATIVE, Urine Nitrite NEGATIVE, Urine Bilirubin NEGATIVE, Urine Urobilinogen 0.2, Urine Leukocyte Esterase (Auto) NEGATIVE, Urine WBC (Auto) 3, Urine RBC (Auto) 0, Urine Hyaline Casts (Auto) 0, Urine Bacteria (Auto) NEGATIVE, Urine Squamous Epithelial Cells 0, Urine Mucus (Auto) SMALL, Urine Sperm (Auto) 12/17/20 07:09: Nucleated Red Blood Cells % (auto) 0.0, Prothrombin Time 14.0, Prothromb Time International Ratio 1.06, Activated Partial Thromboplast Time 62.7H, Anion Gap 9, Glomerular Filtration Rate > 60.0, Estimated Mean Plasma Glucose 143H, Hemoglobin A1c 6.6, Lactic Acid Level 1.9, Calcium Level 8.5L, Magnesium Level 2 .3 12/17/20 07:10: 12/17/20 07:11: 12/17/20 13:01: Activated Partial Thromboplast Time 78.6H CBC/BMP Laboratory Tests 12/16/20 22:08 12/16/20 22:24 12/17/20 07:09 Microbiology Microbiology 12/17/20 Respiratory Virus Panel (PCR) ([facility]) - Final, Complete TALON ORR DO Dec 17, 2020 14:50
--- NOTE | 2020-12-17 20:41 | ECGEPIP ---
[facility] - ED Test Date: 2020-12-16 Pat Name: JOSE BERMUDEZ Department: Room: [place] [address] Gender: Male Demo Event Specialist: : [id number] Requested By: LINDA Urbina Order Number: [id number] Reading MD: Leopoldo Coy Measurements Intervals Gilbert Rate: 75 P: 81 NH: 134 QRS: 26 QRSD: 94 T: 60 QT: 398 QTc: 444 Interpretive Statements Normal sinus rhythm Incomplete right bundle branch block SIMILAR TO 09/20/20 Electronically Signed on 12-17-2020 20:41:20 EDT by Leopoldo Coy
[2020-12-17 22:00] VITALS: BP 118/65
[2020-12-18 02:00] VITALS: BP 136/89
[2020-12-18] MEDS: IPRATROPIUM 0.5MG/ALBUTEROL 2.5MG INH SOL UD 3ML (DUONEB) NEB SCH ×4 (02:00→20:02)
[2020-12-18] MEDS: HEPARIN DRIP 25,000 UNITS in IV 1 EA IV SCH (03:34)
[2020-12-18] MEDS: methylPREDNISolone 40MG 1ML VIAL IV SCH ×3 (03:34→20:04)
[2020-12-18 06:00] VITALS: BP 154/77
[2020-12-18 06:00] LABS: HEMATOCRIT 32.1 % (42.0-52.0); HEMOGLOBIN 8.6 g/dl (13.5-17.5); MEAN CORPUSCULAR HEMOGLOBIN 18.6 pg (27.0-33.0); MEAN CORPUSCULAR HGB CONC 26.8 g/dl (32.0-36.5); MEAN CORPUSCULAR VOLUME 69.5 fl (80.0-96.0); PLATELET COUNT, AUTOMATED 360 10^3/uL (150-450); RED BLOOD COUNT 4.62 10^6/uL (4.30-6.10); WHITE BLOOD COUNT 13.9 10^3/uL (4.0-10.0)
[2020-12-18 06:14] LABS: INR 1.08; PROTHROMBIN TIME 14.2 SECONDS (12.5-14.3)
[2020-12-18 06:27] LABS: BLOOD UREA NITROGEN 18 MG/DL (7-18); CALCIUM LEVEL 8.9 MG/DL (8.8-10.2); CARBON DIOXIDE LEVEL 26 MEQ/L (21-32); CHLORIDE LEVEL 106 MEQ/L (98-107); CREATININE FOR GFR 0.93 MG/DL (0.70-1.30); GLOMERULAR FILTRATION RATE > 60.0 (>42); GLUCOSE, FASTING 173 MG/DL (70-100); POTASSIUM SERUM 4.7 MEQ/L (3.5-5.1); SODIUM LEVEL 139 MEQ/L (136-145)
[2020-12-18] MEDS: BUDESONIDE 0.5 MG/2 ML INHALATION SUSPENSION INH SCH ×2 (07:42→20:02)
[2020-12-18 08:05] LABS: PARTIAL THROMBOPLASTIN TIME 133.2 SECONDS (24.2-38.5)
[2020-12-18] MEDS: TAMSULOSIN 0.4 MG CAP PO SCH (08:13)
[2020-12-18] MEDS: FERROUS SULFATE 325MG TAB PO SCH (08:13)
[2020-12-18] MEDS: ASCORBIC ACID 500 MG TAB PO SCH (08:14)
[2020-12-18] MEDS: PANTOPRAZOLE 40MG VIAL (C9113 PER 1) IV SCH ×2 (08:14→20:04)
[2020-12-18] MEDS ORDERED: ELIQ5TAB PO (09:42)
[2020-12-18 10:00] VITALS: BP 139/78
--- NOTE | 2020-12-18 10:06 | ECHO ---
ECHOCARDIOGRAM DATE OF PROCEDURE: 12/17/2020 Age: 75 Gender: Male Height: Weight: REFERRING PHYSICIAN: Yajaira ____, FUNCTIONAL TESTER PATIENT LOCATION: ED, Room 17. REASON FOR STUDY: Shortness of breath. 2D MEASUREMENTS: IVS 1.1 cm LV 4.7 cm LVPW 1.2 cm LA 4.4 cm Aorta 3.5 cm IVC 2.2 cm DOPPLER MEASUREMENT Peak velocity across the aortic valve 1.6 m/s Peak velocity across the LVOT 1.1 m/s Mitral E 0.59 Mitral A 0.61 with a ratio of less than 1.0 Maximum tricuspid valve velocity 3.7 m/s 2D COMMENTS: 1. Normal left ventricular size, wall thickness, and normal global left ventricular systolic function. The estimated left ventricular systolic ejection fraction is 60% to 65%. 2. Mildly dilated left atrium. The right atrium also appeared to be mildly enlarged. Normal right ventricle. 3. The atrial septum appeared to be normal without evidence of defect or shunt. 4. Normal aortic root. 5. Trace pericardial effusion seen. 6. Mildly calcified aortic valve with normal leaflet excursion. Mildly calcified mitral annulus with normal anterior mitral valve leaflet motion. Normal tricuspid valve. The pulmonic valve and proximal pulmonary artery branches were not well visualized. 7. The inferior vena cava was dilated, central venous pressure was probably elevated. DOPPLER: Detects mild mitral regurgitation, mild tricuspid regurgitation. The calculated pulmonary artery systolic pressure varies between 40 to 50 mmHg. Abnormal relaxation pattern was noted across the mitral valve leaflets and mitral valve annulus consistent with features of grade 1 left ventricular diastolic dysfunction. IMPRESSION: 1. Normal global left ventricular systolic function. There are some features of grade 1 left ventricle diastolic dysfunction manifested by abnormal relaxation. 2. Aortic valve sclerosis without stenosis or aortic regurgitation. 3. Mitral valve annulus calcification with mild mitral regurgitation. 4. Mild tricuspid regurgitation with probably moderate pulmonary hypertension and dilated right atrium. 5. Trace pericardial effusion.
--- NOTE | 2020-12-18 11:20 | IPNPDOC ---
Subjective Date Seen The patient was seen on 12/18/20. Subjective Chief Complaint/HPI Mr. Mendoza is a 75 year old male with COPD, CLAUDETTE, and iron deficiency anemia who presents with hypoxia and found to have bilateral PE. This morning, he denies worsening dyspnea or chest pain. Still have not yet have a BM for occult stool testing. Hemoglobin still lower than baseline and not trending upwards. Will order a CBC with reticulocyte count later in the day. Sending apixaban to pharmacy in anticipation of future oral anticoagulation. Objective Physical Examination General Exam: Positive: Alert, Cooperative Eye Exam: Negative: Sclera icteric ENT Exam: Positive: Atraumatic Neck Exam: Positive: Supple Chest Exam: Positive: Clear to auscultation Heart Exam: Positive: Rate Normal, Regular Rhythm Abdomen Exam: Positive: Normal bowel sounds, Soft; Negative: Tenderness Extremity Exam: Positive: Edema (mild pitting edema) Neuro Exam: Positive: Normal Speech Psych Exam: Positive: Mental status NL, Mood NL Assessment /Plan Assessment Mr. Mendoza is a 75 year old male with COPD, CLAUDETTE, and iron deficiency anemia who presents with hypoxia and found to have bilateral PE. Due to patient's anemia, will start patient on heparin drip and monitor H&H. Otherwise, patient is not normally on oxygen at home. Currently requiring NC Plan/VTE VTE Prophylaxis Ordered?: Yes VTE Exclusion Mechanical Proph: Patient on IV Heparin VTE Exclusion Pharmacological: IV Heparin Therapy Plan 1. Acute unprovoked PE -Multiple segmental and lobar branch PE -No obvious cause. Denies recent travel, hospitalization, surgery, or immobilization -Hypercoagulable work up initiated -Heparin drip due to anemia 2. Iron deficiency anemia -On 11/13/20, Iron 17 and Ferritin 5 -Monitor H&H closely while on heparin drip -Continue iron supplementation. Add on vitamin C -Will repeat CBC with reticulocyte count -Pending occult stool 3. BPH -Continue tamsulosin 4. R/O urethritis -UA negative 5. DVT ppx -Patient on heparin drip Disposition: Pending clinical improvement and improvement in oxygen requirements. Sending apixaban to pharmacy in anticipation of oral anticoagulation VS, I&O, 24H, Fishbone Vital Signs/I&O Vital Signs Date Time Temp Pulse Resp B/P (MAP) Pulse Ox O2 Delivery O2 Flow Rate FiO2 12/18/20 10:00 97.7 83 18 139/78 (98) 93 Nasal Cannula 2.0 I&O- Last 24 Hours up to 6 AM 12/18/20 05:59 Intake Total 931 ml Output Total 575 ml Balance 356 ml Laboratory Data 24H LABS Laboratory Tests 2 12/17/20 13:01: Activated Partial Thromboplast Time 78.6H 12/17/20 15:10: Nucleated Red Blood Cells % (auto) 0.0 12/17/20 19:11: Activated Partial Thromboplast Time 80.9H 12/18/20 05:27: Activated Partial Thromboplast Time 133.2*H, Nucleated Red Blood Cells % (auto) 0.0, Prothrombin Time 14.2H, Prothromb Time International Ratio 1.08, Anion Gap 7L, Glomerular Filtration Rate > 60.0, Calcium Level 8.9 CBC/BMP Laboratory Tests 12/17/20 15:10 12/18/20 05:27 Microbiology Microbiology 12/17/20 Respiratory Virus Panel (PCR) ([facility]) - Final, Complete TALON ORR DO Dec 18, 2020 11:20
[2020-12-18 12:49] LABS: HEMATOCRIT 31.2 % (42.0-52.0); HEMOGLOBIN 8.9 g/dl (13.5-17.5); MEAN CORPUSCULAR HEMOGLOBIN 18.9 pg (27.0-33.0); MEAN CORPUSCULAR HGB CONC 28.5 g/dl (32.0-36.5); MEAN CORPUSCULAR VOLUME 66.4 fl (80.0-96.0); PLATELET COUNT, AUTOMATED 357 10^3/uL (150-450); WHITE BLOOD COUNT 15.6 10^3/uL (4.0-10.0)
[2020-12-18 14:00] VITALS: BP 138/75
[2020-12-18 14:55] LABS: PTT LUPUS TYPE ANTICOAG SCREEN 1.3 (0-1.2)
[2020-12-18 15:02] LABS: DRVV CONFIRM 41.2 SEC; LUPUS CONFIRM RATIO 1.1
[2020-12-18 15:03] LABS: NORMALIZED RATIO 1.18 (0.00-1.20)
[2020-12-18 18:00] VITALS: BP 121/72
[2020-12-18] MEDS: APIXABAN 5 MG TAB (ELIQUIS) PO SCH (20:04)
[2020-12-18 22:00] VITALS: BP 165/81
[2020-12-19 02:00] VITALS: BP 133/68
[2020-12-19] MEDS: IPRATROPIUM 0.5MG/ALBUTEROL 2.5MG INH SOL UD 3ML (DUONEB) NEB SCH ×4 (02:40→19:54)
[2020-12-19] MEDS: methylPREDNISolone 40MG 1ML VIAL IV SCH ×3 (04:19→20:37)
[2020-12-19 05:45] LABS: MEAN CORPUSCULAR HEMOGLOBIN 18.5 pg (27.0-33.0); MEAN CORPUSCULAR HGB CONC 26.5 g/dl (32.0-36.5); PLATELET COUNT, AUTOMATED 384 10^3/uL (150-450); RED BLOOD COUNT 4.86 10^6/uL (4.30-6.10); WHITE BLOOD COUNT 15.8 10^3/uL (4.0-10.0)
[2020-12-19 05:54] LABS: INR 1.12; PROTHROMBIN TIME 14.7 SECONDS (12.5-14.3)
[2020-12-19 06:00] VITALS: BP 120/67
[2020-12-19 06:11] LABS: BLOOD UREA NITROGEN 26 MG/DL (7-18); CALCIUM LEVEL 9.1 MG/DL (8.8-10.2); CARBON DIOXIDE LEVEL 29 MEQ/L (21-32); CHLORIDE LEVEL 107 MEQ/L (98-107); CREATININE FOR GFR 0.92 MG/DL (0.70-1.30); GLOMERULAR FILTRATION RATE > 60.0 (>42); GLUCOSE, FASTING 227 MG/DL (70-100); POTASSIUM SERUM 4.7 MEQ/L (3.5-5.1); SODIUM LEVEL 140 MEQ/L (136-145)
[2020-12-19] MEDS: BUDESONIDE 0.5 MG/2 ML INHALATION SUSPENSION INH SCH ×2 (07:28→19:54)
[2020-12-19] MEDS ORDERED: PRED10TA2 PO (07:48)
[2020-12-19] MEDS ORDERED: ACET650T15 PO (07:48)
[2020-12-19] MEDS ORDERED: ASCO50TA PO (07:48)
[2020-12-19] MEDS ORDERED: VENTAER INH (07:48)
[2020-12-19] MEDS: FERROUS SULFATE 325MG TAB PO SCH (08:38)
[2020-12-19] MEDS: ASCORBIC ACID 500 MG TAB PO SCH (08:38)
[2020-12-19] MEDS: TAMSULOSIN 0.4 MG CAP PO SCH (08:38)
[2020-12-19] MEDS: APIXABAN 5 MG TAB (ELIQUIS) PO SCH (08:39)
[2020-12-19] MEDS: PANTOPRAZOLE 40MG VIAL (C9113 PER 1) IV SCH ×2 (08:39→20:37)
[2020-12-19] MEDS ORDERED: XARE15TA PO (10:16)
[2020-12-19 14:00] VITALS: BP 152/67
--- NOTE | 2020-12-19 15:01 | IPNPDOC ---
Subjective Date Seen The patient was seen on 12/19/20. Subjective Chief Complaint/HPI Mr. Mendoza is a 75 year old male with COPD, CLAUDETTE, and iron deficiency anemia who presents with hypoxia and found to have bilateral PE. This morning, he felt well. He was interesting in trying for home. He did okay at rest, but on ambulation, he required more than 6L of oxygen. Will need to continue with anticoagulation. Xarelto is more affordable than Eliquis. Otherwise, echocardiogram demonstrated a normal right ventricle per plaster applicator read. Objective Physical Examination General Exam: Positive: Alert, Cooperative Eye Exam: Negative: Sclera icteric ENT Exam: Positive: Atraumatic Neck Exam: Positive: Supple Chest Exam: Positive: Clear to auscultation Heart Exam: Positive: Rate Normal, Regular Rhythm Abdomen Exam: Positive: Normal bowel sounds, Soft; Negative: Tenderness Extremity Exam: Positive: Edema (mild pitting edema) Neuro Exam: Positive: Normal Speech Psych Exam: Positive: Mental status NL, Mood NL Assessment /Plan Assessment Mr. Mendoza is a 75 year old male with COPD, CLAUDETTE, and iron deficiency anemia who presents with hypoxia and found to have bilateral PE. Due to patient's anemia, will start patient on heparin drip and monitor H&H. Otherwise, patient is not normally on oxygen at home. He does okay at rest, but with ambulation, he requires more than 6L of oxygen. Otherwise, Xarelto was cheaper than Eliquis. Will change anticoagulation to Xarelto Plan/VTE VTE Prophylaxis Ordered?: Yes VTE Exclusion Mechanical Proph: Patient on IV Heparin VTE Exclusion Pharmacological: IV Heparin Therapy Plan 1. Acute unprovoked PE -Multiple segmental and lobar branch PE -No obvious cause. Denies recent travel, hospitalization, surgery, or immobilization -Hypercoagulable work up initiated -On Xarelto 2. Iron deficiency anemia -On 11/13/20, Iron 17 and Ferritin 5 -Continue iron supplementation. Add on vitamin C -Occult stool negative -Reticulocyte index is low suggesting under production -Monitor H&H 3. BPH -Continue tamsulosin 4. R/O urethritis -UA negative 5. DVT ppx -Patient on Xarelto Disposition: Pending improvement in oxygen requirements VS, I&O, 24H, Fishbone Vital Signs/I&O Vital Signs Date Time Temp Pulse Resp B/P (MAP) Pulse Ox O2 Delivery O2 Flow Rate FiO2 12/19/20 11:00 90 Nasal Cannula 0.5 12/19/20 06:00 96.9 81 20 120/67 (84) I&O- Last 24 Hours up to 6 AM 12/19/20 06:00 Intake Total 2373 ml Output Total 1175 ml Balance 1198 ml Laboratory Data 24H LABS Laboratory Tests 2 12/18/20 15:07: Activated Partial Thromboplast Time 71.0H 12/18/20 21:11: Activated Partial Thromboplast Time 32.4 12/19/20 05:28: Nucleated Red Blood Cells % (auto) 0.1H, Prothrombin Time 14.7H, Prothromb Time International Ratio 1.12, Anion Gap 4L, Glomerular Filtration Rate > 60.0, Calcium Level 9.1 CBC/BMP Laboratory Tests 12/19/20 05:28 Microbiology Microbiology 12/18/20 Stool Occult Blood ([facility]) - Final, Complete 12/17/20 Respiratory Virus Panel (PCR) ([facility]) - Final, Complete TALON ORR DO Dec 19, 2020 15:01
[2020-12-19] MEDS: RIVAROXABAN 15 MG TAB (XARELTO) PO SCH (18:10)
[2020-12-20] MEDS: IPRATROPIUM 0.5MG/ALBUTEROL 2.5MG INH SOL UD 3ML (DUONEB) NEB SCH ×2 (01:52→07:35)
[2020-12-20 02:00] VITALS: BP 163/76
[2020-12-20] MEDS: methylPREDNISolone 40MG 1ML VIAL IV SCH ×2 (04:31→12:00)
[2020-12-20 06:14] VITALS: BP 134/76
[2020-12-20 06:31] LABS: HEMATOCRIT 31.3 % (42.0-52.0); HEMOGLOBIN 8.4 g/dl (13.5-17.5); MEAN CORPUSCULAR HEMOGLOBIN 18.9 pg (27.0-33.0); MEAN CORPUSCULAR HGB CONC 26.8 g/dl (32.0-36.5); MEAN CORPUSCULAR VOLUME 70.3 fl (80.0-96.0); PLATELET COUNT, AUTOMATED 336 10^3/uL (150-450); RED BLOOD COUNT 4.45 10^6/uL (4.30-6.10); WHITE BLOOD COUNT 11.9 10^3/uL (4.0-10.0)
[2020-12-20 06:47] LABS: INR 1.38; PROTHROMBIN TIME 17.3 SECONDS (12.5-14.3)
[2020-12-20 06:56] LABS: BLOOD UREA NITROGEN 26 MG/DL (7-18); CALCIUM LEVEL 8.3 MG/DL (8.8-10.2); CARBON DIOXIDE LEVEL 30 MEQ/L (21-32); CHLORIDE LEVEL 104 MEQ/L (98-107); CREATININE FOR GFR 0.98 MG/DL (0.70-1.30); GLOMERULAR FILTRATION RATE > 60.0 (>42); GLUCOSE, FASTING 256 MG/DL (70-100); POTASSIUM SERUM 4.5 MEQ/L (3.5-5.1); SODIUM LEVEL 139 MEQ/L (136-145)
[2020-12-20] MEDS: BUDESONIDE 0.5 MG/2 ML INHALATION SUSPENSION INH SCH (07:35)
[2020-12-20] MEDS: PANTOPRAZOLE 40MG VIAL (C9113 PER 1) IV SCH (08:55)
[2020-12-20] MEDS: ASCORBIC ACID 500 MG TAB PO SCH (08:55)
[2020-12-20] MEDS: RIVAROXABAN 15 MG TAB (XARELTO) PO SCH (08:56)
[2020-12-20] MEDS: TAMSULOSIN 0.4 MG CAP PO SCH (08:56)
[2020-12-20] MEDS: FERROUS SULFATE 325MG TAB PO SCH (08:56)
[2020-12-20 10:00] VITALS: BP 142/79
--- NOTE | 2020-12-20 17:20 | DS.PDOC ---
Discharge Summary General Date of Admission Dec 17, 2020 at 03:55 Date of Discharge Dec 20, 2020 Discharge Summary PROCEDURES PERFORMED DURING STAY: None ADMITTING DIAGNOSES: 1. Acute unprovoked bilateral PE 2. Iron deficiency anemia 3. BPH 4. Possible urethritis 5. CLAUDETTE, non-compliant with CPAP 6. COPD DISCHARGE DIAGNOSES: 1. Acute unprovoked bilateral PE 2. Iron deficiency anemia 3. BPH 4. Ruled out urethritis 5. CLAUDETTE, non-compliant with CPAP 6. COPD COMPLICATIONS/CHIEF COMPLAINT: Bilateral Pulmonary Embolism. HISTORY OF PRESENT ILLNESS: Copied from admitting provider's H&P " Mr. Mendoza is a 75-year-old male who was sent to the ER today from urgent care with complaint of 2-3 days of worsening shortness of breath. Prior to this time, the patient had been very active and most recently completed work on a very large screened in porch at the back of his house. The last day that they were working on it they had finished the roof in the rain. That night, the patient complained of chills and "shaking" all night. The next day he complained of right lower back pain and wondered if he was getting a kidney infection. However, that symptom disappeared the day after that. According to the patient's , he was at his baseline for about 2 days and then began to experience the sudden onset of shortness of breath. He has a long history of smoking, having quit about 3 years ago. He was diagnosed with COPD in 2013 and does get short of breath at times. He is not on any medications and states that that shortness of breath, never lasts long. He has not had any further treatment or workup since his diagnosis in 2013. He has also been diagnosed with obstructive sleep apnea but is noncompliant with CPAP. He was recently diagnosed with iron deficiency anemia and started on iron supplementation. He states his stools have been black since he started. He also complains of diarrhea since the onset of his shortness of breath 2-3 days ago. He denies seeing any elia or overt blood in his stools. He has not had any fever or chills since that initial night after the rain. He denies nausea or vomiting. On initial evaluation. D-dimer was 3771 and the patient was noted to have multiple segmental and lobar branch pulmonary emboli. Radiology noted no evidence for heart strain. BNP was 310. Hemoglobin and hematocrit were 9.7 and 36.6. Stool was heme positive. Blood glucose was elevated at 157 with no history of diabetes. CT of the abdomen and pelvis showed cholelithiasis and there is mild stranding in the left retroperitoneum with radiology recommending a correlation with urinalysis to exclude ureteritis. There is also a left inguinal fat protruding small hernia and moderate severe multilevel spinal stenosis. UA is pending. Portable chest x-ray was negative for any acute findings. Covid test was negative at urgent care this afternoon. Patient was noted to have hypoxia with O2 sats as low as 86% with exertion. Oxygen had to be increased to 4 L by nasal cannula in order to obtain an O2 sat of 94%. The patient was started on heparin despite the heme positive stool with plans to monitor hemoglobin and hematocrit closely. " HOSPITAL COURSE: CT abd/pelvis was obtained and demonstrated mild stranding of left retroperitoneum which could represent ureteritis. Ordered a UA which was negative for infection. Ruled out ureteritis. Otherwise during hospitalization, patient required 4L NC. He was initiated on heparin drip. Echocardiogram (12/17/20) returned demonstrating EF 60 to 65%, mildly dilated right and left atrium and normal right ventricle. Patient's oxygen status was able to be weaned down to 2L NC. We transitioned him initially to Eliquis, but it was expensive. Switched to Xarelto which was more affordable. He felt well and denied any chest pain or dyspnea. He tells me at baseline, he is dyspneic with activity and recovers with rest. He qualified for home oxygen. At room air, he desaturated down to 85%. Required 1 to 2 L to maintain 93% at rest. He felt ready for home and was discharged home today. DISCHARGE MEDICATIONS: Please see below. ALLERGIES: Please see below. PHYSICAL EXAMINATION ON DISCHARGE: VITAL SIGNS: Please see below. GENERAL: Comfortable, in no apparent distress. HEENT: EOMI, sclera clear. NECK: Supple. RESPIRATORY: Lungs clear to auscultation bilaterally, no rales, wheeze or rhonchi. CARDIOVASCULAR: Regular rate and rhythm. ABDOMEN: Soft, nontender, no guarding or rebound tenderness. Normal bowel sounds. MUSCLE SKELETAL: Muscle strength 5/5 in all extremities. PSYCHOLOGICAL: Normal mood and affect LABORATORY DATA: Please see below. IMAGING: Radiologist interpretation CT abd/pelvis with IV contrast only 1. Cholelithiasis. 2. Mild stranding in the left retroperitoneum. Correlate with urinalysis to exclude ureteritis. 3. Left inguinal fat protruding small hernia. 4. Moderate severe multilevel spinal stenosis. 5. Pulmonary emboli. CT angio chest Multiple segmental and lobar branch pulmonary emboli. No evidence for heart strain. Lower extremity Doppler No evidence of deep vein thrombosis. Echocardiogram results (copied from echocardiogram report) 2D COMMENTS: 1. Normal left ventricular size, wall thickness, and normal global left ventricular systolic function. The estimated left ventricular systolic ejection fraction is 60% to 65%. 2. Mildly dilated left atrium. The right atrium also appeared to be mildly enlarged. Normal right ventricle. 3. The atrial septum appeared to be normal without evidence of defect or shunt. 4. Normal aortic root. 5. Trace pericardial effusion seen. 6. Mildly calcified aortic valve with normal leaflet excursion. Mildly calcified mitral annulus with normal anterior mitral valve leaflet motion. Normal tricuspid valve. The pulmonic valve and proximal pulmonary artery branches were not well visualized. 7. The inferior vena cava was dilated, central venous pressure was probably elevated. DOPPLER: Detects mild mitral regurgitation, mild tricuspid regurgitation. The calculated pulmonary artery systolic pressure varies between 40 to 50 mmHg. Abnormal relaxation pattern was noted across the mitral valve leaflets and mitral valve annulus consistent with features of grade 1 left ventricular diastolic dysfunction. PROGNOSIS: Good ACTIVITY: As tolerated. DIET: As tolerated DISCHARGE PLAN: Home DISPOSITION: 01 Home, Self-Care. DISCHARGE INSTRUCTIONS: 1. Follow up with PCP in 1 week 2. Follow instructions for Xarelto ITEMS TO FOLLOWUP ON ON OUTPATIENT: 1. Xarelto is loaded by 15mg BID for 21 days. Afterwards, Xarelto is switched to 20mg qD. Please have PCP switch patient to 20mg qD after 21 days. DISCHARGE CONDITION: Stable Total time spent on discharge planning, discharge summary, and medication reconciliation: 45 minutes Vital Signs/I&Os Vital Signs Date Time Temp Pulse Resp B/P (MAP) Pulse Ox O2 Delivery O2 Flow Rate FiO2 12/20/20 10:00 97.6 83 18 142/79 (100) 95 Room Air 12/20/20 09:07 3.0 I&O- Last 24 Hours up to 6 AM 12/20/20 06:00 Intake Total 2100 ml Output Total 1000 ml Balance 1100 ml Laboratory Data Labs 24H Laboratory Tests 2 12/20/20 05:31: Nucleated Red Blood Cells % (auto) 0.2H, Prothrombin Time 17.3H, Prothromb Time International Ratio 1.38, Anion Gap 5L, Glomerular Filtration Rate > 60.0, Calcium Level 8.3L CBC/BMP Laboratory Tests 12/20/20 05:31 Microbiology Microbiology 12/18/20 Stool Occult Blood (MARTHA) - Final, Complete 12/17/20 Respiratory Virus Panel (PCR) (MARTHA) - Final, Complete Discharge Medications Scheduled Ascorbic Acid (Vitamin C) 500 Mg Tablet, 500 MG PO DAILY Ferrous Sulfate (Ferrous Sulfate) 325 Mg Tablet.dr, 325 MG PO DAILY, (Reported) L.acidoph/L.bulg/B.bif/S.therm (Bacid Caplet) 1 Each Tablet, 1 TAB PO DAILY, (Reported) [place]-3 Fatty Acids/Fish Oil (Fish Oil 1,000 mg Capsule) 1 Each Capsule, 2,000 MG PO DAILY, (Reported) Omeprazole (Omeprazole) 20 Mg Capsule.dr, 20 MG PO DAILY, (Reported) Prednisone (Prednisone) 10 Mg Tablet, 10 MG PO TAPER Take 4 tabs daily x 3 days, then 3 tabs daily x 3 days, then 2 tabs daily x 3 days, then 1 tab daily x 3 days and stop Rivaroxaban (Xarelto) 15 Mg Tablet, 15 MG PO BID Tamsulosin HCl (Flomax) 0.4 Mg Capsule, 0.4 MG PO DAILY, (Reported) Scheduled PRN Acetaminophen (Acetaminophen ER) 650 Mg Tablet.er, 650 MG PO Q8HP PRN for pain or fever Albuterol Sulfate (Ventolin Hfa) 18 Gm Hfa.aer.ad, 4 PUFFS INH QID PRN for DYSPNEA Allergies Coded Allergies: No Known Allergies (Unverified , 12/16/20) TALON ORR DO Dec 20, 2020 17:20
[2020-12-22 18:11] LABS: ANTI THROMBIN 3 ANTIGEN IMMUNO 80 % (72-124); ANTI THROMBIN 3 FUNCT ACTIVITY 91 % (75-135); CARDIOLIPIN IGA ANTIBODY <9 APL U/mL (0-11); CARDIOLIPIN IGG ANTIBODY <9 GPL U/mL (0-14); CARDIOLIPIN IGM ANTIBODY 11 MPL U/mL (0-12); PHOSPHOLIPIDS LEVEL 154 mg/dL (150-250); PROTEIN C FUNCTIONAL ACTIVITY 80 % (73-180); PROTEIN S FUNCTIONAL ACTIVITY 90 % (63-140)
== END 2020-12-20 12:07 | disposition home or self-care (01) | DRG 176 ==
LOC: M ED 18:31 → M ED INP 12-17 03:55 → M MSPAV 12-17 14:08
PROVIDERS: ADMIT Internal Medicine; ATTEND Internal Medicine
DX: I26.99 Other pulmonary embolism without acute cor pulmonale (principal); J44.1 Chronic obstructive pulmonary disease with (acute) exacerbation; G47.33 Obstructive sleep apnea (adult) (pediatric); D50.9 Iron deficiency anemia, unspecified; N40.1 Benign prostatic hyperplasia with lower urinary tract symptoms; R73.9 Hyperglycemia, unspecified; R35.0 Frequency of micturition; Z96.653 Presence of artificial knee joint, bilateral; Z87.442 Personal history of urinary calculi; Z87.891 Personal history of nicotine dependence; Z79.52 Long term (current) use of systemic steroids; Z79.01 Long term (current) use of anticoagulants; Z79.899 Other long term (current) drug therapy

== ENCOUNTER → 2020-12-16 | Outpatient (CLI) | payer MEDICARE ==
[~2020-12-16] MED LIST changes: +ACET650T15 PO; +ALEV220T22 PO; +ASCO50TA PO; +BACITAB PO; +DOXY100C; +DOXY100T2 PO; +ELIQ5TAB PO; +FERR325T3 PO; +FISH1000 PO; +FLOM0.4C39 PO; +OMEP-218 PO; +PRED10TA2 PO; +PRED5TA PO; +VENTAER INH; +XARE15TA PO
--- NOTE | 2020-12-16 14:23 | REP ---
INDICATION: SHORT OF BREATH. COMPARISON: Multiple the latest 11/13/2020 TECHNIQUE: PA and lateral FINDINGS: Since the last examination slight right CP angle blunting has developed. Lung jiang are otherwise unchanged. The heart is not enlarged. The osseous structures stable and intact. IMPRESSION: New right CP angle blunting. Etiology uncertain. Patient has chronic dyspnea. Contrast-enhanced CT examination the chest is warranted at this time. <Electronically signed by Silvestre Cochran > 12/16/20 [id number]
[2020-12-16 16:23] LABS: BASO # 0.1 10^3/uL (0.0-0.2); EOS # 0.2 10^3/uL (0.0-0.5); HEMATOCRIT 35.2 % (42.0-52.0); HEMOGLOBIN 9.2 g/dl (13.5-17.5); LYMPH # 1.1 10^3/uL (1.5-5.0); LYMPH % 14.1 % (24.0-44.0); MEAN CORPUSCULAR HEMOGLOBIN 18.4 pg (27.0-33.0); MEAN CORPUSCULAR HGB CONC 26.1 g/dl (32.0-36.5); MEAN CORPUSCULAR VOLUME 70.4 fl (80.0-96.0); MONO # 0.6 10^3/uL (0.0-0.8); NEUTROPHILS # 6.1 10^3/uL (1.5-8.5); NEUTROPHILS % 75.5 % (36.0-66.0); PLATELET COUNT, AUTOMATED 354 10^3/uL (150-450); WHITE BLOOD COUNT 8.1 10^3/uL (4.0-10.0)
[2020-12-16 16:41] LABS: ALBUMIN 3.4 GM/DL (3.2-5.2); ALT/SGPT 24 U/L (12-78); BILIRUBIN,TOTAL 0.4 MG/DL (0.2-1.0); BLOOD UREA NITROGEN 17 MG/DL (7-18); CALCIUM LEVEL 8.9 MG/DL (8.8-10.2); CARBON DIOXIDE LEVEL 27 MEQ/L (21-32); CHLORIDE LEVEL 107 MEQ/L (98-107); CREATININE FOR GFR 0.98 MG/DL (0.70-1.30); GLOMERULAR FILTRATION RATE > 60.0 (>42); GLUCOSE, FASTING 139 MG/DL (70-100); MAGNESIUM LEVEL 2.2 MG/DL (1.8-2.4); NT-PRO BNP 319 PG/ML (<125); PHOSPHORUS LEVEL 3.1 MG/DL (2.5-4.9); POTASSIUM SERUM 4.6 MEQ/L (3.5-5.1); SODIUM LEVEL 141 MEQ/L (136-145); TOTAL PROTEIN 7.1 GM/DL (6.4-8.2)
== END ==
LOC: M WUC 13:49
PROVIDERS: ATTEND Nurse Practitioner Family
DX: R06.02 Shortness of breath (principal); R39.9 Unspecified symptoms and signs involving the genitourinary system

== ENCOUNTER → 2021-01-13 | Outpatient (REF) | payer MEDICARE ==
[~2021-01-13] MED LIST changes: +ACET650T15 PO; +ALEV220T22 PO; +ASCO50TA PO; +BACITAB PO; +DITR5TAB PO; +DOXY-350 PO; +DOXY100C3; +DOXY100T2 PO; +ELIQ5TAB PO; +FERR325T3 PO; +FISH1000 PO; +FLOM0.4C39 PO; +MAGN400C PO; +OMEP-218 PO; +PRED10TA2 PO; +PRED5TA PO; +VENTAER INH; +XARE15TA PO
== END ==
LOC: M LAB REF 11:06
PROVIDERS: ATTEND Nurse Practitioner Adult Health
DX: R06.02 Shortness of breath (principal); D64.9 Anemia, unspecified

== ENCOUNTER → 2021-01-13 | Outpatient (REF) | payer MEDICARE ==
[2021-01-13 13:15] LABS: AMORPHOUS SEDIMENT SMALL (NEGATIVE); APPEARANCE, URINE TURBID (CLEAR); BACTERIA, URINE AUTO NEGATIVE (NEGATIVE); BILIRUBIN, URINE AUTO NEGATIVE (NEGATIVE); BLOOD, URINE BLOOD NEGATIVE (NEGATIVE); COLOR, URINE AMBER (YELLOW); GLUCOSE, URINE (UA) AUTO 2+ mg/dL (NEGATIVE); KETONE, URINE AUTO NEGATIVE (NEGATIVE); LEUKOCYTE ESTERASE, URINE AUTO NEGATIVE (NEGATIVE); MUCUS, URINE SMALL (NEGATIVE); NITRITE, URINE AUTO NEGATIVE (NEGATIVE); PROTEIN, URINE AUTO NEGATIVE (NEGATIVE); RBC, URINE AUTO 1 /HPF (0-3); SPECIFIC GRAVITY URINE AUTO 1.023 (1.002-1.035); SQUAMOUS EPITHELIAL CELL UR AU 0 /HPF (0-6); UROBILINOGEN, URINE AUTO 0.2 mg/dL (0.0-2.0); WBC, URINE AUTO 2 /HPF (0-3)
== END ==
LOC: M SMT 11:57
PROVIDERS: ATTEND Nurse Practitioner Women's Health
DX: R35.0 Frequency of micturition (principal)

== ENCOUNTER 2021-01-14 09:03 | Outpatient (CLI) | payer MEDICARE ==
[~2021-01-14] VITALS: Ht 167.6 cm; Wt 110.0 kg
[~2021-01-14 09:03] MED LIST changes: +ACETAMINOPHEN TAB 650MG DOSE (2X325MG) PO SCH; -DITR5TAB PO; -DOXY-350 PO; -MAGN400C PO; +diphenhydrAMINE 25MG CAP PO SCH
[2021-01-14 09:05] VITALS: BP 132/68
[2021-01-14 10:28] VITALS: BP 139/66
[2021-01-14 11:30] VITALS: BP 150/67
[2021-01-14 12:45] VITALS: BP 128/60
[2021-01-14] MEDS ORDERED: DITR5TAB PO (13:38)
[2021-01-14] MEDS ORDERED: DOXY-350 PO (13:38)
[2021-01-14] MEDS ORDERED: MAGN400C PO (13:39)
[2021-01-14 14:20] VITALS: BP 167/72
[2021-01-14 14:40] VITALS: BP 158/68
== END 2021-01-14 14:40 | disposition home or self-care (01) ==
LOC: M INFU 09:03
PROVIDERS: ATTEND Nurse Practitioner Adult Health
DX: D64.9 Anemia, unspecified (principal)
CPT/HCPCS: 36430; P9016

== ENCOUNTER → 2021-01-20 | Outpatient (POV) | payer MEDICARE ==
[~2021-01-20] VITALS: Ht 167.6 cm; Wt 113.1 kg
[~2021-01-20] MED LIST changes: -ACETAMINOPHEN TAB 650MG DOSE (2X325MG) PO SCH; +DITR5TAB PO; +DOXY-350 PO; +MAGN400C PO; -diphenhydrAMINE 25MG CAP PO SCH
[2021-01-20 16:00] VITALS: BP 138/72
--- NOTE | 2021-01-22 14:27 | IRCOV ---
[facility] IR Consult Office Visit IR Consult Office Visit DATE: Jan 20, 2021 REASON FOR CONSULTATION/CHIEF COMPLAINT: Evaluate need for IVC filter. HISTORY OF PRESENT ILLNESS: 76-year-old male, presented in December to the ER, with sudden onset shortness of breath. Patient reports he was walking to the mailbox and then suddenly got short of breath and couldn't make it back to the house. He was taken to the ER, where he was diagnosed with a PE. Ultrasound lower extremities failed to demonstrate any DVT. Patient denies any prior history of DVT or PE. Patient denies any recent illness, immobilization, long journey, surgery or fractures. No family history of DVT or PE. Patient was treated with anticoagulation and discharged from the hospital. He is currently on Xarelto. Patient has been chronically anemic for the last 2 years and is undergoing workup for this. He is scheduled to have a colonoscopy in March. Patient has no bright red blood per rectum. He denies melena however he does take iron tablets. His Hemoccult test performed in the hospital was equivocal, positive only in 1 out of 2. He denies any hematemesis. Patient denies heart attack, stroke, hypertension, diabetes, chest pain, shortness of breath, orthopnea or paroxysmal nocturnal dyspnea. Patient denies any hematuria. He did require a recent blood transfusion. ALLERGIES: Please see below. HOME MEDICATIONS: Please see below. PAST MEDICAL HISTORY: PE BPH PAST SURGICAL HISTORY: Rotator cuff repair Knee replacements Hernia repair FAMILY HISTORY: Noncontributory. SOCIAL HISTORY: Ex-smoker, quit 3 years ago. Denies alcohol or drugs. REVIEW OF SYSTEMS: Otherwise negative. PHYSICAL EXAMINATION: VITAL SIGNS: Please see below. GENERAL APPEARANCE: Appears well. Comfortable at rest. Speaking in full sentences. HEENT: No scleral icterus. RESPIRATORY: Normal breathing at rest. CARDIOVASCULAR: Normal rate. ABDOMEN: Distended. EXTREMITIES: Mild edema. Calf soft nontender. NEUROLOGICAL: Alert and oriented. PSYCHIATRIC: Appropriate to circumstance. LABORATORY DATA: 12/20/2020 hemoglobin 8.4 hematocrit 31.3 WBC 11.9 platelets 336. Sodium 139 potassium 4.5 BUN 26 creatinine 0.98 GFR greater than 60. D- dimer 3771 Phospholipid level, antithrombin III activity, antithrombin III antigen, protein C activity, protein S activity, factor II mutation, factor V Leyden, anticardiolipin IgA, IgG and IgM antibody unremarkable. Imaging: I personally reviewed the CT PE protocol performed 12/17/2020. Bilateral pulmonary emboli affecting predominately the upper lobar branches and segmental in the lower branches. I personally reviewed the bilateral lower extremity venous reflux study performed 12/17/2020. No acute DVT seen. ASSESSMENT/PLAN: 76-year-old male with unprovoked sudden bilateral lobar and segmental pulmonary emboli, with negative lower extremity DVT study, currently on Xarelto. Patient doesn't have any clear indication of active bleeding and therefore continues on anticoagulation therapy without issues. However, patient is undergoing workup for his chronic anemia. I don't see a clear indication for IVC filter placement at this time, if he can be safely anticoagulated. However, if he needs to come off his Xarelto due to bleeding and/or if Xarelto needs to be stopped frequently for procedures in his workup, an IVC filter may be a good idea. This would reduce the risk of a large saddle pulmonary embolus or additional pulmonary embolic burden. However, there are risks of an IVC filter which include IVC thrombus, filter migration, filter fracture or embolization. We discussed the risks and benefits of an IVC filter in detail and the risks and benefits of not having an IVC filter. Patient will discuss this further with his primary care physician, family and home health clinician, regarding need for stopping anti-coagulation and/or procedures. Then, if everyone feels that the benefits would outweigh the risks and the patient wishes to have an IVC filter placed, we will schedule the patient for IVC filter placement. I spent 30 minutes reviewing the patient's records, imaging and in consultation with the patient. Thank you for this referral. Traci Chakraborty NP Allergies Coded Allergies: No Known Allergies (Unverified , 12/16/20) Home Medications Scheduled Ascorbic Acid (Vitamin C), 500 MG PO DAILY Doxycycline Monohydrate (Doxycycline), 1 CAP PO BID, (Reported) Ferrous Sulfate (Ferrous Sulfate), 325 MG PO DAILY, (Reported) L.acidoph/L.bulg/B.bif/S.therm (Bacid Caplet), 1 TAB PO DAILY, (Reported) Magnesium Oxide (Magnesium), 1 CAP PO DAILY, (Reported) Ethel-3 Fatty Acids/Fish Oil (Fish Oil 1,000 mg Capsule), 2,000 MG PO DAILY, (Reported) Omeprazole (Omeprazole), 20 MG PO DAILY, (Reported) Oxybutynin Chloride (Ditropan Xl), 1 TAB PO BID, (Reported) Rivaroxaban (Xarelto), 15 MG PO BID Tamsulosin HCl (Flomax), 0.4 MG PO DAILY, (Reported) Scheduled PRN Acetaminophen (Acetaminophen ER), 650 MG PO Q8HP PRN for pain or fever Albuterol Sulfate (Ventolin Hfa), 4 PUFFS INH QID PRN for DYSPNEA VS, I&O, 24H, U[place]nay Vital Signs/I&O Vital Signs Date Time Temp Pulse Resp B/P (MAP) Pulse Ox O2 Delivery O2 Flow Rate FiO2 01/20/21 16:00 96.9 66 20 138/72 (94) 98 Room Air PJ JONES MD Jan 22, 2021 14:27
== END ==
LOC: M IRPOV 15:52
PROVIDERS: ATTEND Radiology Diagnostic Radiology
DX: Z71.89 Other specified counseling (principal); D64.9 Anemia, unspecified; N40.0 Benign prostatic hyperplasia without lower urinary tract symptoms; Z79.01 Long term (current) use of anticoagulants; Z79.899 Other long term (current) drug therapy; Z86.711 Personal history of pulmonary embolism; Z87.891 Personal history of nicotine dependence; Z96.653 Presence of artificial knee joint, bilateral

== ENCOUNTER → 2021-01-28 | Outpatient (REF) | payer MEDICARE ==
[~2021-01-28] MED LIST changes: +PROBCAP17 PO; +XARE20TA
[2021-01-28 13:44] LABS: APPEARANCE, URINE CLEAR (CLEAR); BACTERIA, URINE AUTO NEGATIVE (NEGATIVE); BILIRUBIN, URINE AUTO NEGATIVE (NEGATIVE); BLOOD, URINE BLOOD NEGATIVE (NEGATIVE); COLOR, URINE STRAW (YELLOW); GLUCOSE, URINE (UA) AUTO NEGATIVE (NEGATIVE); KETONE, URINE AUTO NEGATIVE (NEGATIVE); LEUKOCYTE ESTERASE, URINE AUTO NEGATIVE (NEGATIVE); MUCUS, URINE SMALL (NEGATIVE); NITRITE, URINE AUTO NEGATIVE (NEGATIVE); PROTEIN, URINE AUTO NEGATIVE (NEGATIVE); RBC, URINE AUTO 0 /HPF (0-3); SPECIFIC GRAVITY URINE AUTO 1.004 (1.002-1.035); SQUAMOUS EPITHELIAL CELL UR AU 0 /HPF (0-6); UROBILINOGEN, URINE AUTO 0.2 mg/dL (0.0-2.0); WBC, URINE AUTO 0 /HPF (0-3)
== END ==
LOC: M SMT 13:00
PROVIDERS: ATTEND Nurse Practitioner Women's Health
DX: R35.0 Frequency of micturition (principal)
CPT/HCPCS: 51798; 81001; 87086; G0463

== ENCOUNTER → 2021-02-23 | Outpatient (CLI) | payer MEDICARE ==
[~2021-02-23] MED LIST changes: +ISOVUE-300 61% 50ML VIAL As Ordered ONE; +LIDOCAINE 1% MDV 20ML VIAL As Ordered ONE; +MIDAZOLAM INJ 2MG/2ML VIAL (J2250 PER 1MG) As Ordered ONE; +PROMETHAZINE INJ 25 MG/ML VIAL (J2550) As Ordered ONE; +diphenhydrAMINE 50MG/ML VIAL (J1200) As Ordered ONE; +fentaNYL 100 MCG/2 ML INJECTION (J3010) As Ordered ONE
[2021-02-23] MEDS: NS 1,000 ML IV SCH (08:22)
--- NOTE | 2021-02-23 08:34 | IRHP ---
[facility] IR Pre-Procedure H & P General Date of Service: Feb 23, 2021 Procedure: Same Day Surgery Interval History and Physical I have seen the patient and reviewed last H & P performed within 30 days. There is no significant interval change. History of Present Illness Chief Complaint The patient is a 76-year-old male admitted with a reason for visit of Pulmonary Embolism. PRE-PROCEDURE DIAGNOSIS: Pulmonary embolus. Contraindication to anticoagulation. HEART: Normal rate. LUNGS: Normal breathing at rest. ASA Classification ASA Classification: III-Severe systemic dis. Mallampati Score: II NPO: Yes Problems with prior sedation: No Obstructive Sleep Apnea: No Plan moderate sedation Allergies Coded Allergies: No Known Allergies (Unverified , 02/19/21) Home Medications Scheduled Ascorbic Acid (Vitamin C), 500 MG PO DAILY Ferrous Sulfate (Ferrous Sulfate), 325 MG PO DAILY, (Reported) Lactobacillus Combo No.11 (Probiotic), 1 CAP PO DAILY, (Reported) Magnesium Oxide (Magnesium), 1 CAP PO DAILY, (Reported) [place]-3 Fatty Acids/Fish Oil (Fish Oil 1,000 mg Capsule), 2,000 MG PO DAILY, (Reported) Omeprazole (Omeprazole), 20 MG PO DAILY, (Reported) Scheduled PRN Acetaminophen (Acetaminophen ER), 650 MG PO Q8HP PRN for pain or fever Miscellaneous Medications Rivaroxaban (Xarelto), (Reported) Discontinued Medications Albuterol Sulfate (Ventolin Hfa), 4 PUFFS INH QID PRN for DYSPNEA Discontinued Reason: Pt states not taking Doxycycline Monohydrate (Doxycycline), 1 CAP PO BID, (Reported) Discontinued Reason: Pt states not taking L.acidoph/L.bulg/B.bif/S.therm (Bacid Caplet), 1 TAB PO DAILY, (Reported) Discontinued Reason: Pt states not taking Oxybutynin Chloride (Ditropan Xl), 1 TAB PO BID, (Reported) Discontinued Reason: Pt states not taking Rivaroxaban (Xarelto), 15 MG PO BID Discontinued Reason: Re-entering as new Tamsulosin HCl (Flomax), 0.4 MG PO DAILY, (Reported) Discontinued Reason: Pt states not taking VS, I&O, 24H, Fishbone Vital Signs/I&O Vital Signs Date Time Temp Pulse Resp B/P (MAP) Pulse Ox O2 Delivery O2 Flow Rate FiO2 02/23/21 08:00 98.2 72 18 98 Room Air PJ JONES MD Feb 23, 2021 08:34
[2021-02-23 11:00] VITALS: BP 192/72
--- NOTE | 2021-02-24 08:30 | IRPON ---
IR Postoperative Note Date Of Procedure: Feb 23, 2021 Time Of Procedure: 16:00 IR Postoperative Note IR IVC Filter Placement IR Inferior vena cavogram IR Ultrasound of the right groin. IR Moderate sedation. Clinical Information:Pulmonary embolus. Contraindication to anticoagulation. Physician: Dr. Goins. Procedure: The patient was advised of the benefits, risks, and alternatives of the procedure and informed consent was obtained. A time out was performed with verification of the patient's name, MRN, site of procedure, and type of procedure to be performed. The patient was positioned in the supine position on the angiographic table. The site was prepped and draped in the usual sterile fashion. Moderate sedation was performed by the physician including the presence of an in dependent trained RN, who assisted in monitoring the patient's level of consciousness and physiological status. Following the administration of fentanyl and Versed, the physician spent 45 minutes of continuous [id number] time with the patient. Preliminary ultrasound of the right groin was performed, demonstrating patent and compressible right common femoral vein. . The right common femoral vein was accessed under ultrasound guidance, using a micropuncture kit. A 0.035 Amplatz wire was advanced under fluoroscopy guidance and placed into the central inferior vena cava. The filter sheath was advanced over the wire, under fluoroscopy guidance, and positioned in the right common iliac vein. An inferior venacavogram was then performed, demonstrating a normal caliber inferior vena cava without filling defects and the renal vein inflows at the L1/L2 level. No caval anomalies were identified. The filter sheath was advanced over the wire and under fluoroscopy guidance, beyond the target site of deployment. A retrievable Cook select inferior vena cava filter was then advanced through the sheath and positioned within the infra-renal inferior vena cava. The filter was then deployed in the usual fashion. Positioning was confirmed fluoroscopically. The sheath was then removed and hemostasis obtained with manual compression. The patient tolerated the procedure well and was returned to the PRU in stable condition. EBL: < 5 mL. Complications:None. Conclusions: 1. Normal cavogram. 2. Successful deployment of a retrievable Cook select inferior vena cava filter in the infra-renal inferior vena cava. 3. While the filter can remain in lifelong, when it is no longer needed, filter retrieval is advised. Patient to follow-up in IR 6 months to discuss filter ret rieval, if appropriate. CC PJ Carcamo NP, MD Feb 24, 2021 08:30
== END ==
LOC: M IRPRO 07:48
PROVIDERS: ATTEND Radiology Diagnostic Radiology
DX: I26.99 Other pulmonary embolism without acute cor pulmonale (principal); Z79.899 Other long term (current) drug therapy
CPT/HCPCS: 37191; 99152; 99153; C1769; C1880; C1894; J1644; J2250; J3010; Q9967

== ENCOUNTER → 2021-02-25 | Outpatient (CLI) | payer MEDICARE ==
[~2021-02-25] MED LIST changes: -ISOVUE-300 61% 50ML VIAL As Ordered ONE; -LIDOCAINE 1% MDV 20ML VIAL As Ordered ONE; -MIDAZOLAM INJ 2MG/2ML VIAL (J2250 PER 1MG) As Ordered ONE; -PROMETHAZINE INJ 25 MG/ML VIAL (J2550) As Ordered ONE; -diphenhydrAMINE 50MG/ML VIAL (J1200) As Ordered ONE; -fentaNYL 100 MCG/2 ML INJECTION (J3010) As Ordered ONE
== END ==
LOC: M LABSMTC 10:31
PROVIDERS: ATTEND Anesthesiology
DX: Z01.812 Encounter for preprocedural laboratory examination (principal); Z20.822 Contact with and (suspected) exposure to COVID-19

== ENCOUNTER 2021-03-02 12:53 | Day surgery (SDC) | payer MEDICARE ==
[~2021-03-02] VITALS: Ht 167.6 cm; Wt 114.3 kg
[~2021-03-02 12:53] MED LIST changes: +NS 1,000 ML IV ONE
[2021-03-02] MEDS ORDERED: fentaNYL 100 MCG/2 ML INJECTION (J3010) As Ordered ONE (14:35)
[2021-03-02] MEDS ORDERED: LIDOCAINE 2% 100MG/5ML SDV (FOR ANES.) As Ordered ONE (14:35)
[2021-03-02] MEDS ORDERED: propofoL 200 MG/20 ML VIAL As Ordered ONE ×2 (14:35→14:51)
--- NOTE | 2021-03-02 14:46 | ROOR ---
Patient Name: Hernan Mendoza Procedure Date: 03/02/2021 2:29 PM Date of : 1945 Age: 76 Room: [facility] Gender: Male Note Status: Finalized Procedure: Upper Endoscopy + Biopsies Indications: Unexplained iron deficiency anemia Providers: Maurizio Najera MD Referring MD: Arlet Mercado NP Requesting Provider: Medicines: Monitored Anesthesia Care Complications: No immediate complications. Procedure: Pre-Anesthesia Assessment: - The heart rate, respiratory rate, oxygen saturations, blood pressure, adequacy of pulmonary ventilation, and response to care were monitored throughout the procedure. The Endoscope was introduced through the mouth, and advanced to the second part of duodenum. The upper GI endoscopy was accomplished without difficulty. The patient tolerated the procedure well. Findings: The Z-line was irregular and was found 35 cm from the incisors. Multiple biopsies were obtained with cold forceps for evaluation to rule out Rosas's Esophagus randomly at the gastroesophageal junction. A medium-sized hiatal hernia was present. No other significant abnormalities were identified in a careful examination of the stomach. Multiple diminutive angioectasias without bleeding were found in the first portion of the duodenum. The exam was otherwise without abnormality. Impression: - Z-line irregular, 35 cm from the incisors. - Medium-sized hiatal hernia. 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 - The examination was otherwise normal. - Multiple biopsies were obtained at the gastroesophageal junction. - The examination was otherwise normal. Recommendation: - Patient has a contact number available for emergencies. The signs and symptoms of potential delayed complications were discussed with the patient. Return to normal activities tomorrow. Written discharge instructions were provided to the patient. - Resume previous diet. - Discharge patient to home. - Continue present medications. - Await pathology results. - Repeat upper endoscopy for surveillance based on pathology results. - Return to referring physician. - Resume Xarelto (rivaroxaban) at prior dose tomorrow. - The findings and recommendations were discussed with the patient. Procedure Code(s): --- Professional --- 36709, Esophagogastroduodenoscopy, flexible, transoral; with biopsy, single or multiple Diagnosis Code(s): --- Professional --- K22.8, Other specified diseases of esophagus K44.9, Diaphragmatic hernia without obstruction or gangrene K31.819, Angiodysplasia of stomach and duodenum without bleeding D50.9, Iron deficiency anemia, unspecified CPT copyright 2019 [employer]. All rights reserved. The codes documented in this report are preliminary and upon freelance data entry review may be revised to meet current compliance requirements. Maurizio Najera MD Maurizio Najera MD 03/02/2021 2:45:47 PM Electronically signed by Maurizio Najera MD Number of Addenda: 0 Note Initiated On: 03/02/2021 2:29 PM Estimated Blood Loss: Estimated blood loss: none.
--- NOTE | 2021-03-02 15:17 | ROOR ---
Patient Name: Hernan Mendoza Procedure Date: 03/02/2021 2:30 PM Date of : 1945 Age: 76 Room: [facility] Gender: Male Note Status: Finalized Procedure: Colonoscopy to Cecum + APC + Hemoclips Indications: Unexplained iron deficiency anemia Providers: Maurizio Najera MD Referring MD: Arlet Mercado NP Requesting Provider: Medicines: Monitored Anesthesia Care Complications: No immediate complications. Procedure: Pre-Anesthesia Assessment: - The heart rate, respiratory rate, oxygen saturations, blood pressure, adequacy of pulmonary ventilation, and response to care were monitored throughout the procedure. The Colonoscope was introduced through the anus and advanced to the cecum, identified by appendiceal orifice and ileocecal valve. The colonoscopy was performed without difficulty. The patient tolerated the procedure well. The quality of the bowel preparation was excellent. Findings: The perianal and digital rectal examinations were normal. Non-bleeding internal hemorrhoids were found during retroflexion. The hemorrhoids were small and Grade I (internal hemorrhoids that do not prolapse). Scattered small-mouthed diverticula were found in the recto-sigmoid colon, sigmoid colon and descending colon. Two medium-sized patchy angioectasias with typical arborization were found in the cecum. Coagulation for hemostasis using argon plasma at 0.8 liters/minute and 20 epstein was successful. To prevent bleeding post-intervention, five hemostatic clips were successfully placed. There was no bleeding at the end of the procedure. The exam was otherwise without abnormality. Impression: - Non-bleeding internal hemorrhoids. - Diverticulosis in the recto-sigmoid colon, in the sigmoid colon and in the descending colon. - Two colonic angioectasias. Treated with argon plasma coagulation (APC). Clips were placed. - The examination was otherwise normal. - No specimens collected. - The exam was otherwise normal to the cecum. Recommendation: - Patient has a contact number available for emergencies. The signs and symptoms of potential delayed complications were discussed with the patient. Return to normal activities tomorrow. Written discharge instructions were provided to the patient. - Resume previous diet. - Discharge patient to home. - Resume Xarelto (rivaroxaban) at prior dose in 2 days. - The findings and recommendations were discussed with the patient. Procedure Code(s): --- Professional --- 16102, Colonoscopy, flexible; with control of bleeding, any method Diagnosis Code(s): --- Professional --- K64.0, First degree hemorrhoids K55.20, Angiodysplasia of colon without hemorrhage D50.9, Iron deficiency anemia, unspecified K57.30, Diverticulosis of large intestine without perforation or abscess without bleeding CPT copyright 2019 [employer]. All rights reserved. The codes documented in this report are preliminary and upon twister doffer review may be revised to meet current compliance requirements. Maurizio Najera MD Maurizio Najera MD 03/02/2021 3:16:33 PM Electronically signed by Maurizio Najera MD Number of Addenda: 0 Note Initiated On: 03/02/2021 2:30 PM Estimated Blood Loss: Estimated blood loss: none.
[2021-03-02 15:36] VITALS: BP 127/58
== END 2021-03-02 15:37 | disposition home or self-care (01) ==
LOC: M OPP 12:53
PROVIDERS: ATTEND Internal Medicine Gastroenterology
DX: K55.20 Angiodysplasia of colon without hemorrhage (principal); K57.30 Diverticulosis of large intestine without perforation or abscess without bleeding; K64.0 First degree hemorrhoids; D50.9 Iron deficiency anemia, unspecified; K22.8 Other specified diseases of esophagus; K44.9 Diaphragmatic hernia without obstruction or gangrene; K31.819 Angiodysplasia of stomach and duodenum without bleeding; Z79.899 Other long term (current) drug therapy; Z87.891 Personal history of nicotine dependence
CPT/HCPCS: 43239; 45382; 88305; J3010

== ENCOUNTER → 2021-03-04 | Outpatient (REF) | payer MEDICARE ==
[~2021-03-04] MED LIST changes: -NS 1,000 ML IV ONE
== END ==
LOC: M LAB REF 18:03
PROVIDERS: ATTEND Nurse Practitioner Adult Health
DX: D50.9 Iron deficiency anemia, unspecified (principal)

== ENCOUNTER 2021-03-05 11:28 | Outpatient (CLI) | payer MEDICARE ==
[~2021-03-05] VITALS: Ht 167.6 cm; Wt 115.6 kg
[~2021-03-05 11:28] MED LIST changes: +ACETAMINOPHEN TAB 650MG DOSE (2X325MG) PO SCH; +diphenhydrAMINE 25MG CAP PO SCH
[2021-03-05 11:30] VITALS: BP 134/80
[2021-03-05 12:20] VITALS: BP 139/63
[2021-03-05 13:20] VITALS: BP 145/62
[2021-03-05 15:16] VITALS: BP 131/60
[2021-03-05 15:40] VITALS: BP 157/73
[2021-03-05 16:00] VITALS: BP 169/70
== END 2021-03-05 16:00 | disposition home or self-care (01) ==
LOC: M INFU 11:28
PROVIDERS: ATTEND Nurse Practitioner Adult Health
DX: D64.9 Anemia, unspecified (principal)
CPT/HCPCS: 36430; P9016

== ENCOUNTER → 2021-03-10 | Outpatient (POV) | payer MEDICARE ==
[~2021-03-10] VITALS: Ht 167.6 cm; Wt 114.5 kg
[~2021-03-10] MED LIST changes: -ACETAMINOPHEN TAB 650MG DOSE (2X325MG) PO SCH; -diphenhydrAMINE 25MG CAP PO SCH
[2021-03-10 11:35] VITALS: BP 158/80
--- NOTE | 2021-03-12 14:14 | IRPN ---
[facility] IR Progress Note IR Progress Note DATE: Mar 10, 2021 FOLLOW-UP: Status post IVC filter placement for pulmonary embolus with contraindication to anticoagulation. Patient reports some right lower quadrant pain, which started after the procedure. He notices it when he reaches to do something. ON EXAMINATION: Right groin access site is healed. No bruising, hematoma, or pulsatile mass. IMPRESSION: Patient is status post IVC filter placement. The pain is unlikely to be related to the IVC filter. The groin access site has healed up without any issues. Patient advised to keep an eye on the pain and if things change or worsen to let me know. Otherwise, patient to return when he can be safely anticoagulated, for filter removal. Thank you for this referral. Traci Bautista Allergies Coded Allergies: No Known Allergies (Unverified , 02/19/21) VS,Fishbone, I+O VS, Fishbone, I+O Vital Signs Date Time Temp Pulse Resp B/P (MAP) Pulse Ox O2 Delivery O2 Flow Rate FiO2 03/10/21 11:35 98.0 64 20 158/80 (106) 99 Room Air PJ JONES MD Mar 12, 2021 14:14
== END ==
LOC: M IRPOV 11:29
PROVIDERS: ATTEND Radiology Diagnostic Radiology
DX: Z48.812 Encounter for surgical aftercare following surgery on the circulatory system (principal); R10.31 Right lower quadrant pain; Z95.828 Presence of other vascular implants and grafts
CPT/HCPCS: G0463

== ENCOUNTER 2023-01-31 11:42 | Day surgery (SDC) | payer MEDICARE ==
[~2023-01-31] VITALS: Ht 167.6 cm; Wt 114.6 kg
[~2023-01-31 11:42] MED LIST changes: +AIRB1CHW3 PO; +CHLO125TA PO; -DOXY-350 PO; +DOXY-444 PO; +INSU100V13 SQ; +NS 1,000 ML IV ONE; +OLME5TAB24 PO; +OMEGCAP9 PO; +OMEP-173 PO; -OMEP-218 PO; +OXYB5TAB10 PO; +VALS1TAB67 PO; +fentaNYL 100 MCG/2 ML INJECTION As Ordered ONE; +propofoL 200 MG/20 ML VIAL As Ordered ONE
[2023-01-31] MEDS ORDERED: LIDOCAINE 2% 100MG/5ML SDV (FOR ANES.) As Ordered ONE (13:46)
[2023-01-31 13:57] VITALS: TEMP 97.4
[2023-01-31 14:22] VITALS: BP 122/75; O2SAT 91
== END 2023-01-31 14:24 | disposition home or self-care (01) ==
LOC: M OPP 11:42
PROVIDERS: ATTEND Internal Medicine Gastroenterology
DX: K22.70 Barrett's esophagus without dysplasia (principal); K44.9 Diaphragmatic hernia without obstruction or gangrene; K22.89 Other specified disease of esophagus; Z87.891 Personal history of nicotine dependence; Z79.1 Long term (current) use of non-steroidal anti-inflammatories (NSAID); Z79.4 Long term (current) use of insulin; Z79.899 Other long term (current) drug therapy
CPT/HCPCS: 43239; 88305; J3010

== ENCOUNTER → 2023-10-27 | Outpatient (CLI) | payer MEDICARE ==
[~2023-10-27] MED LIST changes: +DOXY-440 PO; -DOXY-444 PO; -NS 1,000 ML IV ONE; -OXYB5TAB10 PO; +OXYB5TAB14 PO; -fentaNYL 100 MCG/2 ML INJECTION As Ordered ONE; -propofoL 200 MG/20 ML VIAL As Ordered ONE
== END ==
LOC: M WUC 13:48
PROVIDERS: ATTEND Nurse Practitioner Family
DX: M25.571 Pain in right ankle and joints of right foot (principal)